=== PATIENT | male | born 1935 | race Caucasian/White ===

== ENCOUNTER → 2016-09-06 | Outpatient (CLI) | payer MEDICARE, BC ==
--- NOTE | 2016-09-06 14:18 | PN ---
DATE OF SERVICE: 09/06/2016 A 80-year-old gentleman who has been followed in the Sleep Center for treatment of obstructive sleep apnea-hypopnea syndrome. Patient continued to use his BiPAP equipment every night for the whole night without significant problems. Sleeps well with that. No snoring. [place] Sleepiness Scale is 2. I checked his BiPAP unit, pressure in the machine is 15/11 cm of water. Usage is 26 out of 30 nights for more than 4 hours. Leak is up to 34 L/min, which is acceptable. Apnea-hypopnea index reading for the last month is 5.9 for the last night is 2.6 which is acceptable. MEDICATIONS: Advair, Univasc, amlodipine, simvastatin, gabapentin, omeprazole. During physical exam, patient in no distress. BP 152/71, HR 74, RR 16, height 5 foot 8. Weight 278. BMI 42.2. Neck 17-1/4 inches in circumference. Temp is 98.0. Oxygen saturation at room air 95%. Low position of soft palate. ABDOMEN: Obese. EXTREMITIES: 1+ ankle edema. IMPRESSION: 1. Obstructive sleep apnea-hypopnea syndrome on control with BiPAP at the pressure 15/11 cm of water. 2. Obesity. Patient lost 9 pounds since the previous visit. 3. Hypertension. 4. History of asthma. 5. Hyperlipidemia. 6. Acid reflux. 7. Status post left knee replacement. PLAN: 1. Continue treatment with BiPAP every night for the whole night. 2. Losing weight. 3. Sleep hygiene with regular time in bed for at least 8 hours. 4. No driving if feeling any sleepiness. 5. Prescription for all necessary BiPAP supplies. Thank you very much for allowing me to participate in the management of your patient. Sincerely, Greg Quick MD, PhD, FAASM. Diplomat of [employer], Sleep Medicine Board by [employer] Sulfuric Acid Plant Operator of [facility] [place]
== END | disposition home or self-care (01) ==
LOC: SLEEP 11:41
PROVIDERS: ATTEND Internal Medicine
DX: G47.33 Obstructive sleep apnea (adult) (pediatric) (principal); E66.9 Obesity, unspecified; I10 Essential (primary) hypertension; J45.909 Unspecified asthma, uncomplicated; E78.5 Hyperlipidemia, unspecified; K21.9 Gastro-esophageal reflux disease without esophagitis; Z68.41 Body mass index [BMI] 40.0-44.9, adult; Z96.652 Presence of left artificial knee joint; Z79.899 Other long term (current) drug therapy

== ENCOUNTER → 2017-08-29 | Outpatient (CLI) | payer MEDICARE, BC ==
--- NOTE | 2017-08-29 12:03 | PN ---
PROGRESS NOTE DATE OF SERVICE: 08/29/2017. DATE OF SERVICE: An 81-year-old gentleman has been followed in Sleep Center for treatment of obstructive sleep apnea-hypopnea syndrome. The patient continued to use his BiPAP equipment every night without any significant problems related to mask, tube, filters. He is using nasal pillow mask. [place] Sleepiness Scale today is 4. I checked his BiPAP unit, the BiPAP pressure is 15/11 cm of water, humidity at level of 4. Usage is 100% of the time, more than 4 hours. Average usage 9.1 hours. Leak is 19 L/minute which is acceptable. Apnea-hypopnea index for the last month is only 2.0, which is perfect. MEDICATIONS: Advair, Univasc, amlodipine, simvastatin, gabapentin, omeprazole. PHYSICAL EXAMINATION: GENERAL: A pleasant patient without any distress. VITAL SIGNS: BP 159/75, HR 75, RR 18, height 5 feet 8 inches, weight 294.2, BMI 44.7, temperature 97.2, oxygen saturation room air 96%. HEENT: Oropharynx low position of soft palate. PERRLA, EOMI, evaluation of oropharynx showed tongue protrudes midline. Neck Supple, no JVD. Thyroid is not palpable. LUNGS: Clear to percussion and to auscultation. Good air exchange. No wheezing or rhonchi. HEART: S1, S2 regular. No murmurs, gallops, or rubs. ABDOMEN: Obese, soft and nontender. Bowel sounds are present. No organomegaly appreciated. EXTREMITIES: 1+ ankle edema. No clubbing or cyanosis. HAND INSPECTOR: Awake, alert, and oriented X3. Cranial nerves 2 to 7 intact. There is no fasciculation or atrophy. noted. No focal deficits observed. IMPRESSION: 1. Obstructive sleep apnea-hypopnea syndrome. The patient demonstrated 100% compliance with treatment, benefitting from treatment, respirations normal on BiPAP. 2. Obesity. The patient increased his weight by 16 pounds since previous visit. 3. Hypertension. 4. History of asthma. 5. Acid reflux. 6. Hyperlipidemia. 7. Status post left knee replacement. PLAN: 1. Patient will continue to use BiPAP equipment every night for the whole night with the same regimen. 2. Prescription for all necessary supplies including nasal pillow mask, tube, filters. 3. Losing weight. 4. Sleep hygiene with regular time in bed for at least 7.5 hours. 5. No driving if feeling sleepiness. 6. Followup visit in 1 year or earlier if patient has any problems. Thank you very much for allowing me to participate in the care of your patient. JONAS / COLETTEN: [id number] /
== END | disposition home or self-care (01) ==
LOC: SLEEP 11:05
PROVIDERS: ATTEND Internal Medicine
DX: G47.33 Obstructive sleep apnea (adult) (pediatric) (principal); E66.9 Obesity, unspecified; I10 Essential (primary) hypertension; K21.9 Gastro-esophageal reflux disease without esophagitis; E78.5 Hyperlipidemia, unspecified; Z96.651 Presence of right artificial knee joint; Z87.09 Personal history of other diseases of the respiratory system; Z99.89 Dependence on other enabling machines and devices

== ENCOUNTER → 2018-09-04 | Outpatient (CLI) | payer MEDICARE, BC ==
--- NOTE | 2018-09-04 11:57 | SFUN ---
SLEEP CENTER FOLLOW UP NOTE DATE OF SERVICE: 09/04/2018 This is an 82-year-old gentleman who has been followed in the sleep center for treatment of obstructive sleep apnea-hypopnea syndrome. Patient continued to use his BiPAP equipment every night for the whole night, sometimes possibly opens his mouth during the sleep according to his . [place] Sleepiness Scale today is 0. Sometimes patient feels sleepiness during the day. I checked his BiPAP unit. Usage is 100% of the time more than 4 hours. Average usage is 9.8 hours per night. Pressure is 15 or 11 cm of water. Leak is 29 L/minute for the last month average. Apnea-hypopnea index only 4.2, which is absolutely normal range. MEDICATIONS: Advair, Univasc, amlodipine, simvastatin, gabapentin, omeprazole. PHYSICAL EXAMINATION: During physical exam, patient in no distress. VITAL SIGNS: BP 170/84, HR 72, RR 19, height 5 feet 8 inches, weight 295 pounds which is about the same as last year when it was 294, body mass index 44.7, temperature 97.8, oxygen saturation at room air 97%. HEENT: PERRLA, EOMI. Oropharynx extremely low position of soft palate, Mallampati 4. NECK: Supple, no JVD. Thyroid is not palpable. LUNGS: Clear to percussion and to auscultation. Good air exchange. No wheezing or rhonchi. HEART: S1, S2 regular. No murmurs, gallops, or rubs. ABDOMEN: Obese. EXTREMITIES: 1+ bilateral ankle edema. CRIME SCENE ANALYST: Awake, alert, and oriented X3. Cranial nerves 2 to 7 intact. There is no fasciculation or atrophy. noted. No focal deficits observed. IMPRESSION: 1. Obstructive sleep apnea-hypopnea syndrome. The patient demonstrated 100% compliance with treatment benefitting from treatment normal respiration by the reading from the machine. 2. High leak possibly related to opening mouth. 3. Obesity. 4. Hypertension. 5. History of asthma. 6. Acid reflux. 7. Hyperlipidemia. 8. Status post left knee replacement. PLAN: 1. Patient will continue to use BiPAP equipment every night for the whole night. 2. Prescription for all necessary BiPAP supplies including mask, tube, filters. 3. Prescription for chin strap to prevent opening mouth. 4. Losing weight. 5. Sleep hygiene with regular time in bed for at least 8 hours. 6. No driving if feeling any sleepiness. Thank you very much for allowing me to participate in management of your patient. Sincerely, Greg Quick MD, PhD, FAASM Diplomat of [employer] Clerk Carrier of [facility] [place] MMODL / TRINA: [id number] /
== END ==
LOC: SLEEP 10:57
PROVIDERS: ATTEND Internal Medicine
DX: G47.33 Obstructive sleep apnea (adult) (pediatric) (principal); E66.9 Obesity, unspecified; I10 Essential (primary) hypertension; K21.9 Gastro-esophageal reflux disease without esophagitis; E78.5 Hyperlipidemia, unspecified; Z96.652 Presence of left artificial knee joint; Z87.09 Personal history of other diseases of the respiratory system; Z99.89 Dependence on other enabling machines and devices; Z79.899 Other long term (current) drug therapy

== ENCOUNTER → 2020-01-28 | Outpatient (CLI) | payer MEDICARE, BC ==
--- NOTE | 2020-01-29 02:13 | SFUN ---
SLEEP CENTER FOLLOW UP NOTE DATE OF SERVICE: 01/28/2020 An 84-year-old gentleman who has been followed in sleep center for treatment of obstructive sleep apnea-hypopnea syndrome. The patient is successfully continuing to use his BiPAP equipment and does not have any complaints. According to his , everything is okay except at the beginning when he started to use machine pressure is high. I checked his BiPAP unit. Level of the pressure of 15/11. Usage 23 out of 30 nights for more than 4 hours. Average usage is 6.9 hours per night. Leak is 36 L/minute. Apnea- hypopnea index 11.5 with central apnea-hypopnea index 7.1. [place] Sleepiness Scale is 9. MEDICATIONS: Univasc, amlodipine, simvastatin, gabapentin. PHYSICAL EXAMINATION: GENERAL: Patient in no distress. VITAL SIGNS: BP 170/81, HR 78, RR 16, height 5 feet 8 inches, weight 256, body mass index 38.9, temperature 98.6, oxygen saturation at room air 96%. HEENT: PERRLA, EOMI. Oropharynx extremely low position of soft palate. Mallampati 4. NECK: Supple, no JVD. Thyroid is not palpable. LUNGS: Clear to percussion and to auscultation. Good air exchange. No wheezing or rhonchi. HEART: S1, S2 regular. No murmurs, gallops, or rubs. ABDOMEN: Obese. EXTREMITIES: 1+ ankle edema. RAMP BOSS: Awake, alert, and oriented X3. Cranial nerves 2 to 7 intact. There is no fasciculation or atrophy. noted. No focal deficits observed. IMPRESSION: 1. Obstructive sleep apnea-hypopnea syndrome. Patient demonstrated great compliance with treatment, benefitting from treatment. 2. Reading from BiPAP unit showed increasing apnea-hypopnea index, mostly related to central apneas, possibly pressure in BiPAP unit slightly high for the patient because he lost around 40 pounds since previous visit. 3. High leak possibly opening mouth. 4. Obesity. 5. Hypertension. 6. History of asthma. 7. Acid reflux. 8. Hyperlipidemia. 9. Status post left knee replacement. PLAN: 1. I slightly decreased pressure in BiPAP unit down to 13/9 cm of water. 2. Patient will continue to use PAP equipment every night for the whole night. 3. Sleep hygiene with regular time in bed for at least 7-1/2 to 8 hours. 4. Precautions related to driving. No driving if feeling sleepiness. 5. I will maintain all necessary prescription for PAP supplies including mask, tube, filters. 6. Watching and losing weight. 7. No driving if feeling sleepiness. 8. Follow-up visit in 6 months or earlier if patient has any problems. Thank you very much for allowing me to participate in management of your patient. Sincerely, Greg Quick MD, PhD, FAASM Diplomat of [employer] Geographic Information Systems Analyst of [facility] [place] MMODL / IJN: [id number] /
== END | disposition home or self-care (01) ==

== ENCOUNTER → 2020-06-17 | Outpatient (CLI) | payer MEDICARE, BC ==
--- NOTE | 2020-06-17 15:24 | CT ---
EXAMINATION TYPE: CT brain wo con DATE OF EXAM: 06/17/2020 HISTORY: Weakness and confusion CT DLP: 1209.4 mGycm. Automated Exposure Control for Dose Reduction was Utilized. TECHNIQUE: CT scan of the head is performed without contrast. COMPARISON: MRI brain January 16, 2011. FINDINGS: There is no acute intracranial hemorrhage or midline shift identified. There is diffuse v entricular and sulcal prominence consistent with diffuse age-related cerebral atrophy greatest over t he bilateral frontal and temporal lobes. There is low-attenuation in the periventricular white matte r consistent with chronic small vessel ischemic change. The globes are intact and the visualized sin uses are clear. IMPRESSION: No acute intracranial hemorrhage or midline shift. There is moderate diffuse cerebral a trophy and mild to moderate chronic small vessel ischemic change with interval progression from 2011 MRI noted.
== END | disposition home or self-care (01) ==
LOC: RADCTMAIN 12:15
PROVIDERS: ATTEND Internal Medicine
DX: G31.9 Degenerative disease of nervous system, unspecified (principal); I67.82 Cerebral ischemia; F03.90 Unspecified dementia, unspecified severity, without behavioral disturbance, psychotic disturbance, mood disturbance, and anxiety
CPT/HCPCS: 70450

== ENCOUNTER → 2020-08-18 | Outpatient (CLI) | payer MEDICARE, BC ==
--- NOTE | 2020-08-18 12:20 | SFUN ---
SLEEP CENTER FOLLOW UP NOTE DATE OF SERVICE: 08/18/2020 This 84-year-old gentleman had been followed in Sleep Center for treatment of obstructive sleep apnea-hypopnea syndrome. The patient continued to use his BiPAP equipment but may forgot to use it some nights. Patient has dementia. His helping him. [place] Sleepiness Scale today is zero. I checked his BiPAP unit. Pressure is 13/9 cm of water. Usage is 24 out of 30 nights. Average usage 4.5 hours per night. Leak is 29 L/minute. Apnea-hypopnea index 7.7, which includes central index 1.7. During the previous visit, apnea-hypopnea index was 11.5 and after I adjusted the pressure down to avoid central apneas, this actually improved. MEDICATIONS: Donepezil 5 mg once a day, simvastatin 20 mg once a day, amlodipine 10 mg once a day, lisinopril 20 mg once a day, B12 at 1000 mcg every other day and melatonin at bedtime. PHYSICAL EXAMINATION: GENERAL: Patient in no distress. VITAL SIGNS: BP 134/70, HR 65, RR 18, height 5 feet 9 inches, weight 247.8, temperature 98.2, oxygen saturation at room air 97%. HEENT: PERRLA, EOMI, evaluation of oropharynx extremely low position of soft palate. Mallampati 4. NECK: Supple, no JVD. Thyroid is not palpable. LUNGS: Clear to percussion and to auscultation. Good air exchange. No wheezing or rhonchi. HEART: S1, S2 regular. No murmurs, gallops, or rubs. ABDOMEN: Soft and nontender. Bowel sounds are present. No organomegaly appreciated. EXTREMITIES: No clubbing or cyanosis. UNIFORM ATTENDANT: Awake, alert, and oriented X3. Cranial nerves 2 to 7 intact. There is no fasciculation or atrophy. noted. No focal deficits observed. IMPRESSION: 1. Obstructive and central sleep apnea-hypopnea syndrome, mostly on control with BiPAP. The patient benefitting from treatment, apnea-hypopnea index reduced during this visit comparing with the previous visit. 2. Hypertension. 3. Dementia. 4. History of asthma. 5. Obesity. 6. Acid reflux. 7. Hyperlipidemia. 8. Status post left knee replacement. PLAN: 1. Patient will continue to use PAP equipment every night for the whole night. 2. Sleep hygiene with regular time in bed for at least 7-1/2 to 8 hours. 3. Precautions related to driving. No driving if feeling sleepiness. 4. I will maintain all necessary prescription for PAP supplies including mask, tube, filters. 5. Watching weight. 6. No driving if feeling sleepiness. 7. Follow-up visit in 6 months or earlier if patient has any problems. Thank you very much for allowing me to participate in management of your patient. Sincerely, Greg Quick MD, PhD, FAASM Diplomat of [employer] Vessel Captain of [facility] [place] MMODL / IJN: [id number] /
== END | disposition home or self-care (01) ==
LOC: SLEEP 09:49
PROVIDERS: ATTEND Internal Medicine
DX: G47.33 Obstructive sleep apnea (adult) (pediatric) (principal); I10 Essential (primary) hypertension; F03.90 Unspecified dementia, unspecified severity, without behavioral disturbance, psychotic disturbance, mood disturbance, and anxiety; E66.9 Obesity, unspecified; K21.9 Gastro-esophageal reflux disease without esophagitis; E78.5 Hyperlipidemia, unspecified; Z99.89 Dependence on other enabling machines and devices; Z79.899 Other long term (current) drug therapy; Z96.652 Presence of left artificial knee joint; Z87.09 Personal history of other diseases of the respiratory system

== ENCOUNTER → 2020-10-13 | Outpatient (CLI) | payer MEDICARE, BC | END | disposition home or self-care (01) | LOC: LABWHC1 15:39 | PROVIDERS: ATTEND Internal Medicine | DX: Z20.822 Contact with and (suspected) exposure to COVID-19 (principal) | CPT/HCPCS: U0003; C9803; U0005 ==

== ENCOUNTER → 2020-10-17 | Outpatient (CLI) | payer MEDICARE, BC ==
--- NOTE | 2020-10-17 15:28 | XR ---
EXAMINATION TYPE: XR chest 2V DATE OF EXAM: 10/17/2020 COMPARISON: None HISTORY: 84-year-old male R05, cough TECHNIQUE: Frontal and lateral views FINDINGS: Heart upper limits of normal in size. Tortuous/ectatic thoracic aorta. Patchy atelectasis or early in filtrate at the left base. No pleural effusion. IMPRESSION: Some mild patchy left basilar atelectasis versus early infiltrate.
== END | disposition home or self-care (01) ==
LOC: RADXRMAIN 14:26
PROVIDERS: ATTEND Internal Medicine
DX: R05 Cough (principal)
CPT/HCPCS: 71046

== ENCOUNTER 2020-11-11 14:13 | Inpatient (IN) | payer MEDICARE, BC ==
[2020-11-11 15:09] LABS: Albumin 3.5 g/dL (3.5-5.0); Magnesium 2.4 mg/dL (1.6-2.3); Potassium 3.9 mmol/L (3.5-5.1); Total Bilirubin 0.9 mg/dL (0.2-1.3)
[2020-11-11 15:19] LABS: Partial Thromboplastin Time 21.9 sec (22.0-30.0); Prothrombin Time 10.8 sec (9.0-12.0)
[2020-11-11 15:23] LABS: Anisocytosis Slight; Basophils # (A) 0.2 k/uL (0-0.2); Basophils % (A) 1 %; Eosinophils % (A) 0 %; HCT 50.2 % (39.0-53.0); HGB 16.2 gm/dL (13.0-17.5); Lymphocytes # (A) 1.2 k/uL (1.0-4.8); Lymphocytes % (A) 8 %; MCH 26.1 pg (25.0-35.0); MCHC 32.3 g/dL (31.0-37.0); MCV 80.8 fL (80.0-100.0); Mean Platelet Volume 8.3; Microcytosis Slight; Monocytes # (A) 1.3 k/uL (0-1.0); Monocytes % (A) 10 %; Neutrophils # (A) 11.1 k/uL (1.3-7.7); Neutrophils % (A) 79 %; Platelet Count 349 k/uL (150-450); RBC 6.22 m/uL (4.30-5.90); RDW 16.9 % (11.5-15.5)
[2020-11-11 15:26] LABS: D-Dimer 1.44 mg/L FEU (<0.60)
--- NOTE | 2020-11-11 15:32 | ED ---
General Adult HPI - General Chief complaint: Shortness of Breath Stated complaint: SOB Time Seen by Provider: 11/11/20 14:25 Source: EMS Mode of arrival: EMS Limitations: altered mental status - History of Present Illness Initial comments: Dictation was produced using [employer] dictation software. please excuse any grammatical, word or spelling errors. This patient was cared for during a federal and state declared state of emergency secondary to Covid 19 Chief Complaint: 84-year-old male brought in from any [facility] the [address] History of Present Illness: Patient is an 84-year-old male presents to the emergency department from any [facility]. Patient has history of dementia and is at baseline alert and oriented 1. Patient was recently hospitalized for COVID-19 pneumonia and respiratory failure. He was recently discharged. He was at the rehab admitted [facility] for Covid rehab. He was coming along fine when today he was noted to be hypoxic. EMS was called patient brought to the emergency department. He is placed on noninvasive ventilation. Unable to obtain sedated to baseline mental status PHYSICAL EXAM: General Impression: Alert and oriented x1/4, BiPAP in place HEENT: Normocephalic atraumatic, extra-ocular movements intact, pupils equal and reactive to light bilaterally, mucous membranes moist. Cardiovascular: Heart regular rate and rhythm Chest: no retractions, no tachypnea Abdomen: abdomen soft, non-tender, non-distended, no organomegaly Musculoskeletal: Pulses present and equal in all extremities, no peripheral edema Motor: no focal deficits noted Neurological: no focal motor or sensory deficits noted Skin: Intact with no visualized rashes ED course: 84-year-old male brought to the emergency Department for hypoxia. He was recently hospitalized for respiratory failure secondary to COVID-19. Vital signs upon arrival shows a 87% on CPAP, rest of vital signs within acceptable limits. Patient change to bilevel positive airway pressure. Saturations improved to 100. Laboratory evaluation obtained. Leukocytosis 14.0. Coag panel is unremarkable. D-dimer is elevated 1.44. Arterial blood gas shows pH of 7.5 with pO2 128 and FiO2 of 100. Metabolic panel is within acceptable limits. Lactic acidosis 2.5. Troponin is within usual limits. No evidence for heart failure. Coronal virus test is positive. Chest x-ray shows diffuse bilateral infiltrates. CT angios the chest was obtained due to elevated d-dimer shows no PE but redemonstrates extensive posterior infiltrates consistent with pneumonia. This was unclear patient's symptoms are from Covid versus bacterial pneumonia. Patient will be treated with antibiotics. Patient be admitted. He is satting well on BiPAP. Case discussed with department was went except patient's care per pulmonology be consulted. EKG interpretation: Ventricular rate 100, sinus rhythm, CT interval 162, QRS 80, QTc 464. No CT prolongation, no QTC prolongation, no ST or T-wave changes noted. No old EKG for comparison Overall, this EKG is unremarkable - Related Data Home Medications Medication Instructions Recorded Confirmed Acetaminophen [Tylenol Arthritis] 650 mg PO Q6H PRN 11/11/20 11/11/20 Albuterol Sulfate [Ventolin HFA] 2 puff INHALATION QID@07,,,11/11/20 11/11/20 Ascorbic Acid [Vitamin C] 1,000 mg PO DAILY@69911/11/20 11/11/20 Donepezil HCl [Aricept] 10 mg PO DAILY@69911/11/20 11/11/20 Enoxaparin [Lovenox] 40 mg SQ DAILY@0500 11/11/20 11/11/20 Health-Shake 1 can PO TID@0700,1300,1900 11/11/20 11/11/20 Ipratropium-Albuterol Nebulize 3 ml INHALATION RT-Q6H PRN 11/11/20 11/11/20 [Duoneb 0.5 mg-3 mg/3 ml Soln] Lansoprazole [Prevacid] 15 mg PO DAILY 11/11/20 11/11/20 Melatonin 3 mg PO HS 11/11/20 11/11/20 Metoclopramide [Reglan] 5 mg PO TID@0700,1300,1900 11/11/20 11/11/20 QUEtiapine FUMARATE [SEROquel] 12.5 mg PO HS@199911/11/20 11/11/20 Simvastatin [Zocor] 20 mg PO DAILY@69911/11/20 11/11/20 Zinc Sulfate [Orazinc] 220 mg PO DAILY@69911/11/20 11/11/20 amLODIPine [Norvasc] 10 mg PO DAILY@69911/11/2021 lisinopriL [Zestril] 20 mg PO DAILY 11/11/20 11/11/20 Allergies Allergy/AdvReac Type Severity Reaction Status Date / Time No Known Allergies Allergy Verified 11/11/20 15:29 Review of Systems ROS Statement: Those systems with pertinent positive or pertinent negative responses have been documented in the HPI. ROS Other: All systems not noted in ROS Statement are negative. Past Medical History Past Medical History: Dementia, Hyperlipidemia, Hypertension Additional Past Medical History / Comment(s): Covid positive, foot drop, History of Any Multi-Drug Resistant Organisms: None Reported Past Surgical History: Unable to Obtain Past Psychological History: Unable to Obtain Past Alcohol Use History: Unable to Obtain Past Drug Use History: Unable to Obtain General Exam Limitations: altered mental status Course Vital Signs 11/11/20 11/11/20 11/11/20 14:14 14:24 16:28 Temperature 98.4 F Pulse Rate 76 78 Respiratory 24 36 H Rate Blood Pressure 108/64 122/77 O2 Sat by Pulse 87 L 100 100 Oximetry Medical Decision Making - Lab Data Result diagrams: 11/11/20 14:28 11/11/20 14:55 Lab Results 11/11/20 11/11/20 11/11/20 Range/Units 14:28 14:28 14:28 WBC 14.0 H (3.8-10.6) k/uL RBC 6.22 H (4.30-5.90) m/uL Hgb 16.2 (13.0-17.5) gm/dL Hct 50.2 (39.0-53.0) % MCV 80.8 (80.0-100.0) fL MCH 26.1 (25.0-35.0) pg MCHC 32.3 (31.0-37.0) g/dL RDW 16.9 H (11.5-15.5) % Plt Count 349 (150-450) k/uL MPV 8.3 Neutrophils % 79 % Lymphocytes % 8 % Monocytes % 10 % Eosinophils % 0 % Basophils % 1 % Neutrophils # 11.1 H (1.3-7.7) k/uL Lymphocytes # 1.2 (1.0-4.8) k/uL Monocytes # 1.3 H (0-1.0) k/uL Eosinophils # 0.0 (0-0.7) k/uL Basophils # 0.2 (0-0.2) k/uL Anisocytosis Slight Microcytosis Slight PT (9.0-12.0) sec INR (<1.2) APTT (22.0-30.0) sec D-Dimer (<0.60) mg/L FEU Sample Site ABG pH (7.35-7.45) ABG pCO2 (35-45) mmHg ABG pO2 (83-108) mmHg ABG HCO3 (21-25) mmol/L ABG Total CO2 (19-24) mmol/L ABG O2 Saturation (94-97) % ABG Base Excess mmol/L Benito Test FiO2 % Sodium (137-145) mmol/L Potassium (3.5-5.1) mmol/L Chloride (98-107) mmol/L Carbon Dioxide (22-30) mmol/L Anion Gap mmol/L BUN (9-20) mg/dL Creatinine (0.66-1.25) mg/dL Est GFR (CKD-EPI)AfAm (>60 ml/min/1.73 sqM) Est GFR (CKD-EPI)NonAf (>60 ml/min/1.73 sqM) Glucose (74-99) mg/dL Lactic Ac Sepsis Rflx Plasma Lactic Acid Kevin 2.5 H* (0.7-2.0) mmol/L Calcium (8.4-10.2) mg/dL Magnesium (1.6-2.3) mg/dL Total Bilirubin (0.2-1.3) mg/dL AST (17-59) U/L ALT (4-49) U/L Alkaline Phosphatase (38-126) U/L Troponin I (0.000-0.034) ng/mL NT-Pro-B Natriuret Pep pg/mL Total Protein (6.3-8.2) g/dL Albumin (3.5-5.0) g/dL Influenza Type A (PCR) Not Detected (Not Detectd) Influenza Type B (PCR) Not Detected (Not Detectd) RSV (PCR) Not Detected (Not Detectd) SARS-CoV-2 (PCR) Detected A (Not Detectd) 11/11/20 11/11/20 11/11/20 Range/Units 14:28 14:28 14:28 WBC (3.8-10.6) k/uL RBC (4.30-5.90) m/uL Hgb (13.0-17.5) gm/dL Hct (39.0-53.0) % MCV (80.0-100.0) fL MCH (25.0-35.0) pg MCHC (31.0-37.0) g/dL RDW (11.5-15.5) % Plt Count (150-450) k/uL MPV Neutrophils % % Lymphocytes % % Monocytes % % Eosinophils % % Basophils % % Neutrophils # (1.3-7.7) k/uL Lymphocytes # (1.0-4.8) k/uL Monocytes # (0-1.0) k/uL Eosinophils # (0-0.7) k/uL Basophils # (0-0.2) k/uL Anisocytosis Microcytosis PT 10.8 (9.0-12.0) sec INR 1.0 (<1.2) APTT 21.9 L (22.0-30.0) sec D-Dimer 1.44 H (<0.60) mg/L FEU Sample Site ABG pH (7.35-7.45) ABG pCO2 (35-45) mmHg ABG pO2 (83-108) mmHg ABG HCO3 (21-25) mmol/L ABG Total CO2 (19-24) mmol/L ABG O2 Saturation (94-97) % ABG Base Excess mmol/L Benito Test FiO2 % Sodium (137-145) mmol/L Potassium (3.5-5.1) mmol/L Chloride (98-107) mmol/L Carbon Dioxide (22-30) mmol/L Anion Gap mmol/L BUN (9-20) mg/dL Creatinine (0.66-1.25) mg/dL Est GFR (CKD-EPI)AfAm (>60 ml/min/1.73 sqM) Est GFR (CKD-EPI)NonAf (>60 ml/min/1.73 sqM) Glucose (74-99) mg/dL Lactic Ac Sepsis Rflx Plasma Lactic Acid Kevin (0.7-2.0) mmol/L Calcium (8.4-10.2) mg/dL Magnesium (1.6-2.3) mg/dL Total Bilirubin (0.2-1.3) mg/dL AST (17-59) U/L ALT (4-49) U/L Alkaline Phosphatase (38-126) U/L Troponin I 0.024 (0.000-0.034) ng/mL NT-Pro-B Natriuret Pep 212 pg/mL Total Protein (6.3-8.2) g/dL Albumin (3.5-5.0) g/dL Influenza Type A (PCR) (Not Detectd) Influenza Type B (PCR) (Not Detectd) RSV (PCR) (Not Detectd) SARS-CoV-2 (PCR) (Not Detectd) 11/11/20 11/11/20 11/11/20 Range/Units 14:55 15:09 16:32 WBC (3.8-10.6) k/uL RBC (4.30-5.90) m/uL Hgb (13.0-17.5) gm/dL Hct (39.0-53.0) % MCV (80.0-100.0) fL MCH (25.0-35.0) pg MCHC (31.0-37.0) g/dL RDW (11.5-15.5) % Plt Count (150-450) k/uL MPV Neutrophils % % Lymphocytes % % Monocytes % % Eosinophils % % Basophils % % Neutrophils # (1.3-7.7) k/uL Lymphocytes # (1.0-4.8) k/uL Monocytes # (0-1.0) k/uL Eosinophils # (0-0.7) k/uL Basophils # (0-0.2) k/uL Anisocytosis Microcytosis PT (9.0-12.0) sec INR (<1.2) APTT (22.0-30.0) sec D-Dimer (<0.60) mg/L FEU Sample Site R radial ABG pH 7.51 H (7.35-7.45) ABG pCO2 29 L (35-45) mmHg ABG pO2 128 H (83-108) mmHg ABG HCO3 23 (21-25) mmol/L ABG Total CO2 24 (19-24) mmol/L ABG O2 Saturation 98.3 H (94-97) % ABG Base Excess 0.1 mmol/L Benito Test Yes FiO2 100 % Sodium 140 (137-145) mmol/L Potassium 3.9 (3.5-5.1) mmol/L Chloride 104 (98-107) mmol/L Carbon Dioxide 25 (22-30) mmol/L Anion Gap 11 mmol/L BUN 28 H (9-20) mg/dL Creatinine 1.05 (0.66-1.25) mg/dL Est GFR (CKD-EPI)AfAm 76 (>60 ml/min/1.73 sqM) Est GFR (CKD-EPI)NonAf 66 (>60 ml/min/1.73 sqM) Glucose 126 H (74-99) mg/dL Lactic Ac Sepsis Rflx Y Plasma Lactic Acid Kevin (0.7-2.0) mmol/L Calcium 9.0 (8.4-10.2) mg/dL Magnesium 2.4 H (1.6-2.3) mg/dL Total Bilirubin 0.9 (0.2-1.3) mg/dL AST 33 (17-59) U/L ALT 23 (4-49) U/L Alkaline Phosphatase 106 (38-126) U/L Troponin I (0.000-0.034) ng/mL NT-Pro-B Natriuret Pep pg/mL Total Protein 7.0 (6.3-8.2) g/dL Albumin 3.5 (3.5-5.0) g/dL Influenza Type A (PCR) (Not Detectd) Influenza Type B (PCR) (Not Detectd) RSV (PCR) (Not Detectd) SARS-CoV-2 (PCR) (Not Detectd) Critical Care Time Critical Care Time: Yes Total Critical Care Time: 33 Disposition Clinical Impression: Pneumonia, Respiratory failure Disposition: ADMITTED IP TO THIS [facility] Condition: Critical Referrals: Alli Smith MD [Primary Care Provider] - 1-2 days Decision Time: 17:58
--- NOTE | 2020-11-11 15:56 | XR ---
EXAMINATION TYPE: XR chest 1V portable DATE OF EXAM: 11/11/2020 HISTORY: Shortness of breath. COMPARISON: 10/17/2020 TECHNIQUE: Single view of the chest is submitted. FINDINGS: Demonstrated are scattered senescent parenchymal change. Vague perihilar and lower lobe infiltrates. The heart is stable. Hilar and mediastinal structures are within normal limits. Degenerative changes are seen of the dorsal spine. IMPRESSION: 1. Vague perihilar and lower lobe infiltrates.
[2020-11-11 16:36] LABS: ABG Base Excess 0.1 mmol/L; ABG HCO3 23 mmol/L (21-25); ABG Oxygen Saturation 98.3 % (94-97); ABG PCO2 29 mmHg (35-45); ABG PH 7.51 (7.35-7.45); ABG PO2 128 mmHg (83-108); ABG TCO2 24 mmol/L (19-24); Allen Test Performed? Yes
--- NOTE | 2020-11-11 17:18 | CT ---
EXAMINATION TYPE: CT angio chest DATE OF EXAM: 11/11/2020 COMPARISON: None HISTORY: Shortness of breath. CT DLP: 793.9 mGycm Automated exposure control for dose reduction was used. CONTRAST: Performed with IV Contrast, patient injected with 100 mL of Isovue 370. Images obtained from the thoracic inlet to the diaphragm with IV contrast and 3-D post processing. There is patchy posterior pulmonary interstitial and airspace bilateral infiltrates. Thoracic aorta i s atheromatous. There are a few paratracheal lymph nodes up to 1 cm. There are is enlarged 2.5 cm lef t bronchial lymph nodes. There is no pericardial effusion. There is no pleural effusion. Upper abdominal soft tissues appear i ntact. I see no evidence of filling defect in the pulmonary arteries. 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 IMPRESSION: Bilateral pulmonary extensive posterior infiltrates consistent with pneumonia. No evidence of pulmona ry embolism. Enlarged left bronchial lymph node is likely inflammatory.
[2020-11-11] MEDS ORDERED: ONDANSETRON 4 MG/2 ML VIAL IVP PRN (17:55)
[2020-11-11] MEDS ORDERED: ACETAMINOPHEN TAB 325 MG TAB PO PRN (17:55)
[2020-11-11] MEDS ORDERED: NALOXONE 0.4 MG/ML 1 ML VIAL IV PRN (17:55)
[2020-11-11] MEDS ORDERED: AZITHROMYCIN 500 MG in SODIUM CHLORIDE 0.9% 250 ML IVPB STA (17:57)
[2020-11-11] MEDS ORDERED: cefTRIAXone IN SWFI 1,000 MG/10 ML SYRINGE IVP STA (17:57)
[2020-11-11] MEDS ORDERED: DEXAMETHASONE SOD PHOSPHATE 10 MG/ML 1 ML VIAL IV STA (17:58)
[2020-11-11] MEDS: SODIUM CHLORIDE 0.9% 1,000 ML IV SCH (18:49)
[2020-11-11] MEDS ORDERED: LORazepam 2 MG/ML INJ IV PRN (21:03)
[2020-11-11] MEDS: QUEtiapine 25 MG TAB PO SCH (21:24)
[2020-11-12] MEDS: ENOXAPARIN 40 MG/0.4 ML SYRINGE SQ SCH (05:57)
[2020-11-12] MEDS: SODIUM CHLORIDE 0.9% 1,000 ML IV SCH ×2 (05:57→20:24)
[2020-11-12] MEDS: ASCORBIC ACID 500 MG TAB PO SCH (05:57)
[2020-11-12] MEDS: ATORVASTATIN 10 MG TAB PO SCH (05:57)
[2020-11-12] MEDS: DONEPEZIL 10 MG TAB PO SCH (05:58)
[2020-11-12] MEDS: ZINC SULFATE 220 MG CAP PO SCH (05:58)
[2020-11-12] MEDS: PANTOPRAZOLE 40 MG TABLET PO SCH (05:58)
[2020-11-12] MEDS: ALBUTEROL HFA INHALER INHALATION PRN ×3 (12:27→20:34)
[2020-11-12 12:33] LABS: African American GFR (CKD) >90 (>60 ml/min/1.73 sqM); Anion Gap 8 mmol/L; Blood Urea Nitrogen 27 mg/dL (9-20); C Reactive Protein 3.8 mg/dL (<1.0); Calcium 8.8 mg/dL (8.4-10.2); Carbon Dioxide 23 mmol/L (22-30); Chloride 110 mmol/L (98-107); Glucose 128 mg/dL (74-99); LDH 1075 U/L (313-618); Non-African American GFR(CKD) 81 (>60 ml/min/1.73 sqM); Potassium 4.6 mmol/L (3.5-5.1); Sodium 141 mmol/L (137-145)
[2020-11-12 12:37] LABS: Anisocytosis Slight; Basophils # (A) 0.2 k/uL (0-0.2); Basophils % (A) 2 %; Eosinophils % (A) 0 %; HCT 48.2 % (39.0-53.0); HGB 16.1 gm/dL (13.0-17.5); Lymphocytes # (A) 0.5 k/uL (1.0-4.8); Lymphocytes % (A) 5 %; MCH 27.5 pg (25.0-35.0); MCHC 33.4 g/dL (31.0-37.0); MCV 82.3 fL (80.0-100.0); Mean Platelet Volume 8.9; Monocytes # (A) 0.6 k/uL (0-1.0); Monocytes % (A) 7 %; Neutrophils # (A) 7.5 k/uL (1.3-7.7); Neutrophils % (A) 84 %; Platelet Count 239 k/uL (150-450); RBC 5.85 m/uL (4.30-5.90); RDW 16.8 % (11.5-15.5); WBC 8.9 k/uL (3.8-10.6)
--- NOTE | 2020-11-12 14:03 | P.CNPUL ---
History of Present Illness Consult date: 11/12/20 Requesting physician: Annie Lizarraga Reason for consult: dyspnea, hypoxemia, pneumonia, abnormal CXR/CT Chief complaint: Shortness of breath. History of present illness: Pulmonary consult dated 11/12/2020. This is an 84-year-old male, brought into the emergency room, on November 11, with complaints of shortness of breath. He was brought in by EMS. The patient apparently was at the [facility] and was then transferred to the some other facility in [place], because they have a COVID unit. Apparently, because his shortness of breath was getting worse, the patient was transferred to the emergency room to be evaluated. The patient is a very poor historian. He apparently has severe dementia. He is not really able to tell me why he is in the hospital. He is very confused about where he was prior to this hospital. Currently, the patient is on 4 L nasal cannula. He is getting saline at 80 mL an hour. He had a CT angiogram which was negative for pulmonary embolism but did show diffuse bilateral infiltrates, consistent with coronavirus pneumonia. The patient apparently has a history of dementia, hyperlipidemia, hypertension, and foot drop. White count 8.9, hemoglobin 16.1, hematocrit 48.2, platelet count 239,000. Blood gases show pO2 128, pCO2 of 29, pH is 7.51. Sodium 141, potassium 4.6, chlorides 110, CO2 23, anion gap 8, BUN 27, and creatinine 0.84. His LDH is 1075 and a C-reactive protein is 3.8. His d-dimer is only 1.44. Chest x-ray and CAT scan are reviewed, and are consistent with the diagnosis. Review of Systems REVIEW OF SYSTEMS: CONSTITUTIONAL: [Negative.] NEUROLOGIC: [ Negative.] HEENT: [ Negative.] CARDIAC: [Negative.] PULMONARY: Shortness of breath and low saturations. GI: [Negative.] : [Negative.] RHEUMATOLOGIC: [ Negative.] IMMUNOLOGIC: [ Negative.] ENDOCRINE: [Negative. ] DERMATOLOGIC: [Negative.] Past Medical History Past Medical History: Dementia, Hyperlipidemia, Hypertension, Sleep Apnea/CPAP/BIPAP Additional Past Medical History / Comment(s): Covid positive, foot drop, HAD COVID VACCINE History of Any Multi-Drug Resistant Organisms: None Reported Past Surgical History: Unable to Obtain Past Psychological History: Unable to Obtain Smoking Status: Former smoker Past Alcohol Use History: Unable to Obtain Past Drug Use History: Unable to Obtain Medications and Allergies Home Medications Medication Instructions Recorded Confirmed Type Acetaminophen [Tylenol Arthritis] 650 mg PO Q6H PRN 11/11/20 11/11/20 History Albuterol Sulfate [Ventolin HFA] 2 puff INHALATION QID@07,13,19,23 11/11/20 11/11/20 History Ascorbic Acid [Vitamin C] 1,000 mg PO DAILY@0700 11/11/20 11/11/20 History Donepezil HCl [Aricept] 10 mg PO DAILY@0700 11/11/20 11/11/20 History Enoxaparin [Lovenox] 40 mg SQ DAILY@0500 11/11/20 11/11/20 History Health-Shake 1 can PO TID@0700,1300,1900 11/11/20 11/11/20 History Ipratropium-Albuterol Nebulize 3 ml INHALATION RT-Q6H PRN 11/11/20 11/11/20 History [Duoneb 0.5 mg-3 mg/3 ml Soln] Lansoprazole [Prevacid] 15 mg PO DAILY 11/11/20 11/11/20 History Melatonin 3 mg PO HS 11/11/20 11/11/20 History Metoclopramide [Reglan] 5 mg PO TID@0700,1300,1900 11/11/20 11/11/20 History QUEtiapine FUMARATE [SEROquel] 12.5 mg PO HS@199911/11/20 11/11/20 History Simvastatin [Zocor] 20 mg PO DAILY@0711/11/20 11/11/20 History Zinc Sulfate [Orazinc] 220 mg PO DAILY@0700 11/11/20 11/11/20 History amLODIPine [Norvasc] 10 mg PO DAILY@0711/11/20 11/11/20 History lisinopriL [Zestril] 20 mg PO DAILY 11/11/20 11/11/20 History Allergies Allergy/AdvReac Type Severity Reaction Status Date / Time No Known Allergies Allergy Verified 11/11/20 15:29 Physical Exam Osteopathic Statement: *. No significant issues noted on an osteopathic structural exam other than those noted in the History and Physical/Consult. Vitals: Vital Signs Temp Pulse Pulse Resp BP BP Pulse Ox 11/12/20 12:05 97.1 F L 62 20 129/74 91 L 11/12/20 08:40 93 L 11/12/20 08:30 96.7 F L 67 20 135/61 92 L 11/12/20 04:05 64 30 H 136/70 96 11/11/20 23:30 98.2 F 75 30 H 138/75 97 11/11/20 19:45 98.9 F 64 26 H 128/70 95 11/11/20 19:06 98.4 F 88 34 H 125/80 94 L 11/11/20 19:03 24 11/11/20 18:03 84 28 H 116/81 93 L 11/11/20 16:28 78 36 H 122/77 100 11/11/20 14:24 100 11/11/20 14:14 98.4 F 76 24 108/64 87 L Intake and Output 11/11/20 11/12/20 11/12/20 22:59 06:59 14:59 Intake Total 0 Balance 0 Intake: Oral 0 Other: Voiding Method Diaper Diaper # Voids 1 # Bowel Movements 1 Weight 104.326 kg 104 kg No acute distress, confused/demented, and a very poor historian. Currently on 4 L. Saturation 91%. HEENT examination is grossly unremarkable. Neck supple. Full range of motion. No adenopathy thyromegaly or neck vein distention. Cardiovascular examination reveals regular rhythm rate. S1-S2 normal. No S3 or S4. No discernible murmur noted. Heart sounds are distant. Heart rate 62 bpm. Lungs reveal coarse bilateral rhonchi. A few scattered crackles. No wheezes. Breath sounds equal bilaterally. Abdomen soft bowel sounds are heard. No masses or tenderness. Extremities are intact. No cyanosis clubbing or edema. Skin is without rash or lesion. Neurologic examination is brief but nonfocal. Results - Laboratory Findings CBC and BMP: 11/12/20 11:45 11/12/20 11:45 ABG ABG pH 7.51 (7.35-7.45) H 11/11/20 16:32 ABG pCO2 29 mmHg (35-45) L 11/11/20 16:32 ABG pO2 128 mmHg (83-108) H 11/11/20 16:32 ABG O2 Saturation 98.3 % (94-97) H 11/11/20 16:32 PT/INR, D-dimer PT 10.8 sec (9.0-12.0) 11/11/20 14:28 INR 1.0 (<1.2) 11/11/20 14:28 D-Dimer 1.44 mg/L FEU (<0.60) H 11/11/20 14:28 Abnormal lab findings: Abnormal Labs 11/11/20 11/11/20 11/11/20 14:28 14:28 14:28 WBC 14.0 H RBC 6.22 H RDW 16.9 H Neutrophils # 11.1 H Lymphocytes # Monocytes # 1.3 H APTT D-Dimer ABG pH ABG pCO2 ABG pO2 ABG O2 Saturation Chloride BUN Glucose Plasma Lactic Acid Kevin 2.5 H* Magnesium Lactate Dehydrogenase C-Reactive Protein SARS-CoV-2 (PCR) Detected A 11/11/20 11/11/20 11/11/20 14:28 14:55 16:32 WBC RBC RDW Neutrophils # Lymphocytes # Monocytes # APTT 21.9 L D-Dimer 1.44 H ABG pH 7.51 H ABG pCO2 29 L ABG pO2 128 H ABG O2 Saturation 98.3 H Chloride BUN 28 H Glucose 126 H Plasma Lactic Acid Kevin Magnesium 2.4 H Lactate Dehydrogenase C-Reactive Protein SARS-CoV-2 (PCR) 11/12/20 11/12/20 11:45 11:45 WBC RBC RDW 16.8 H Neutrophils # Lymphocytes # 0.5 L Monocytes # APTT D-Dimer ABG pH ABG pCO2 ABG pO2 ABG O2 Saturation Chloride 110 H BUN 27 H Glucose 128 H Plasma Lactic Acid Kevin Magnesium Lactate Dehydrogenase 1075 H C-Reactive Protein 3.8 H SARS-CoV-2 (PCR) - Diagnostic Findings Chest x-ray: image reviewed CT scan - chest: image reviewed Assessment and Plan Assessment: Acute hypoxemic respiratory failure, secondary to COVID 19 pneumonia. Elevated inflammatory markers secondary to coronavirus infection. No evidence of pulmonary embolism on CT angiogram. History of hyperlipidemia. History of hypertension. History of dementia. History of footdrop. Plan: Plan dated 11/12/2020. The patient is currently on vitamin C, and zinc. The patient should also receive vitamin D3. The patient's getting Lovenox 40 subcu daily. The patient should also get Decadron 6 mg a day. The patient is outside the window for REM. The patient is not a candidate for TOCI. We will continue to follow make r ecommendations were appropriate. Prognosis is guarded. Time with Patient: Greater than 30
[2020-11-12 17:52] LABS: Ferritin 260.8 ng/mL (22.0-322.0)
--- NOTE | 2020-11-12 18:28 | P.HPIM ---
History of Present Illness H&P Date: 11/12/20 Chief Complaint: hypoxemia 84-year-old male, brought into the emergency room, on November 11, with complaints of shortness of breath. He was brought in by EMS. The patient apparently was at the [facility] and was then transferred to the some other facility in [place], because they have a COVID unit. Apparently, because his shortness of breath was getting worse, the patient was transferred to the emergency room to be evaluated. The patient is a very poor historian. He apparently has severe dementia. He is not really able to tell me why he is in the hospital. He is very confused about where he was prior to this hospital. in the ED patienthad a CT angiogram which was negative for pulmonary embolism but did show diffuse bilateral infiltrates, consistent with coronavirus pneumonia. The patient apparently has a history of dementia, hyperlipidemia, hypertension, and foot drop. White count 8.9, hemoglobin 16.1, hematocrit 48.2, platelet count 239,000. Blood gases show pO2 128, pCO2 of 29, pH is 7.51. Sodium 141, potassium 4.6, chlorides 110, CO2 23, anion gap 8, BUN 27, and creatinine 0.84. His LDH is 1075 and a C-reactive protein is 3.8. His d-dimer is only 1.44. Chest x-ray and CAT scan are reviewed, and are consistent with the diagnosis. Review of Systems REVIEW OF SYSTEMS: CONSTITUTIONAL: No fever, no malaise, no fatigue. HEENT: No recent visual problems or hearing problems. Denied any sore throat. CARDIOVASCULAR: No chest pain, orthopnea, PND, no palpitations, no syncope. PULMONARY: No shortness of breath, no cough, no hemoptysis. GASTROINTESTINAL: No diarrhea, no nausea, no vomiting, no abdominal pain. NEUROLOGICAL: No headaches, no weakness, no numbness. HEMATOLOGICAL: Denies any bleeding or petechiae. GENITOURINARY: Denies any burning micturition, frequency, or urgency. MUSCULOSKELETAL/RHEUMATOLOGICAL: Denies any joint pain, swelling, or any muscle pain. ENDOCRINE: Denies any polyuria or polydipsia. The rest of the 14-point review of systems is negative. Past Medical History Past Medical History: Dementia, Hyperlipidemia, Hypertension, Sleep Apnea/CPAP/BIPAP Additional Past Medical History / Comment(s): Covid positive, foot drop, History of Any Multi-Drug Resistant Organisms: None Reported Past Surgical History: Unable to Obtain Past Psychological History: Unable to Obtain Smoking Status: Former smoker Past Alcohol Use History: Unable to Obtain Past Drug Use History: Unable to Obtain Medications and Allergies Home Medications Medication Instructions Recorded Confirmed Type Acetaminophen [Tylenol Arthritis] 650 mg PO Q6H PRN 11/11/20 11/11/20 History Albuterol Sulfate [Ventolin HFA] 2 puff INHALATION QID@07,13,,11/11/20 11/11/20 History Ascorbic Acid [Vitamin C] 1,000 mg PO DAILY@0700 11/11/20 11/11/20 History Donepezil HCl [Aricept] 10 mg PO DAILY@0711/11/20 11/11/20 History Enoxaparin [Lovenox] 40 mg SQ DAILY@0500 11/11/20 11/11/20 History Health-Shake 1 can PO TID@0700,1300,1900 11/11/20 11/11/20 History Ipratropium-Albuterol Nebulize 3 ml INHALATION RT-Q6H PRN 11/11/20 11/11/20 History [Duoneb 0.5 mg-3 mg/3 ml Soln] Lansoprazole [Prevacid] 15 mg PO DAILY 11/11/20 11/11/20 History Melatonin 3 mg PO HS 11/11/20 11/11/20 History Metoclopramide [Reglan] 5 mg PO TID@0700,1300,1900 11/11/20 11/11/20 History QUEtiapine FUMARATE [SEROquel] 12.5 mg PO HS@199911/11/20 11/11/20 History Simvastatin [Zocor] 20 mg PO DAILY@69911/11/20 11/11/20 History Zinc Sulfate [Orazinc] 220 mg PO DAILY@0711/11/20 11/11/20 History amLODIPine [Norvasc] 10 mg PO DAILY@0711/11/20 11/11/20 History lisinopriL [Zestril] 20 mg PO DAILY 11/11/20 11/11/20 History Allergies Allergy/AdvReac Type Severity Reaction Status Date / Time No Known Allergies Allergy Verified 11/11/20 15:29 Physical Exam Vitals: Vital Signs Temp Pulse Pulse Resp BP BP Pulse Ox 11/12/20 08:40 93 L 11/12/20 08:30 96.7 F L 67 20 135/61 92 L 11/12/20 04:05 64 30 H 136/70 96 11/11/20 23:30 98.2 F 75 30 H 138/75 97 11/11/20 19:45 98.9 F 64 26 H 128/70 95 11/11/20 19:06 98.4 F 88 34 H 125/80 94 L 11/11/20 19:03 24 11/11/20 18:03 84 28 H 116/81 93 L 11/11/20 16:28 78 36 H 122/77 100 11/11/20 14:24 100 11/11/20 14:14 98.4 F 76 24 108/64 87 L Intake and Output 11/11/20 11/12/20 11/12/20 22:59 06:59 14:59 Other: Voiding Method Diaper Diaper # Voids 1 # Bowel Movements 1 Weight 104.326 kg 104 kg PHYSICAL EXAMINATION: GENERAL: The patient is alert and oriented x3, not in any acute distress. Well developed, well nourished. HEENT: Pupils are round and equally reacting to light. EOMI. No scleral icterus. No conjunctival pallor. Normocephalic, atraumatic. No pharyngeal erythema. No thyromegaly. CARDIOVASCULAR: S1 and S2 present. No murmurs, rubs, or gallops. PULMONARY: Chest is clear to auscultation, no wheezing or crackles. ABDOMEN: Soft, nontender, nondistended, normoactive bowel sounds. No palpable organomegaly. MUSCULOSKELETAL: No joint swelling or deformity. EXTREMITIES: No cyanosis, clubbing, or pedal edema. NEUROLOGICAL: Gross neurological examination did not reveal any focal deficits. SKIN: No rashes. Results CBC & Chem 7: 11/12/20 11:45 11/12/20 11:45 Labs: Abnormal Lab Results - Last 24 Hours (Table) 11/11/20 11/11/20 11/11/20 Range/Units 14:28 14:28 14:28 WBC 14.0 H (3.8-10.6) k/uL RBC 6.22 H (4.30-5.90) m/uL RDW 16.9 H (11.5-15.5) % Neutrophils # 11.1 H (1.3-7.7) k/uL Monocytes # 1.3 H (0-1.0) k/uL APTT (22.0-30.0) sec D-Dimer (<0.60) mg/L FEU ABG pH (7.35-7.45) ABG pCO2 (35-45) mmHg ABG pO2 (83-108) mmHg ABG O2 Saturation (94-97) % BUN (9-20) mg/dL Glucose (74-99) mg/dL Plasma Lactic Acid Kevin 2.5 H* (0.7-2.0) mmol/L Magnesium (1.6-2.3) mg/dL SARS-CoV-2 (PCR) Detected A (Not Detectd) 11/11/20 11/11/20 11/11/20 Range/Units 14:28 14:55 16:32 WBC (3.8-10.6) k/uL RBC (4.30-5.90) m/uL RDW (11.5-15.5) % Neutrophils # (1.3-7.7) k/uL Monocytes # (0-1.0) k/uL APTT 21.9 L (22.0-30.0) sec D-Dimer 1.44 H (<0.60) mg/L FEU ABG pH 7.51 H (7.35-7.45) ABG pCO2 29 L (35-45) mmHg ABG pO2 128 H (83-108) mmHg ABG O2 Saturation 98.3 H (94-97) % BUN 28 H (9-20) mg/dL Glucose 126 H (74-99) mg/dL Plasma Lactic Acid Kevin (0.7-2.0) mmol/L Magnesium 2.4 H (1.6-2.3) mg/dL SARS-CoV-2 (PCR) (Not Detectd) Thrombosis Risk Factor Assmnt - Choose All That Apply Each Factor Represents 1 point: Oral contraceptives or hormone replacement therapy Thrombosis Risk Factor Assessment Total Risk Factor Score: 1 Thrombosis Risk Factor Assessment Level: Low Risk Assessment and Plan Assessment: 1. Acute hypoxemic respiratory failure, secondary to COVID 19 pneumonia. - The patient is currently on vitamin C, and zinc. The patient should also receive vitamin D3. The patient's getting Lovenox 40 subcu daily. The patient should also get Decadron 6 mg a day. The patient is outside the window for REM. The patient is not a candidate for TOCI. - patient is started on ceftriaxone and azithromycin; pulmonary service on board and recommending to discontinue antibiotics 2. Elevated inflammatory markers secondary to coronavirus infection. - no evidence of pulmonary embolism on CT angiogram. - Patient remains on subcu Lovenox at 40 mg subcu daily for DVT prophylaxis 3. Hyperlipidemia; Lipitor 10 mg daily. 4. Hypertension; takes amlodipine 10 mg daily and lisinopril 20 mg daily. 5. History of dementia; Aricept 10 mg by mouth daily. DVT prophylaxis; SCDs/subcu Lovenox CODE STATUS full code
[2020-11-12] MEDS ORDERED: QUEtiapine 25 MG TAB PO SCH (20:00)
[2020-11-12] MEDS: QUEtiapine 25 MG TAB PO SCH (20:24)
[2020-11-13] MEDS: ENOXAPARIN 40 MG/0.4 ML SYRINGE SQ SCH (06:21)
[2020-11-13] MEDS: ATORVASTATIN 10 MG TAB PO SCH (06:22)
[2020-11-13] MEDS: DONEPEZIL 10 MG TAB PO SCH (06:22)
[2020-11-13] MEDS: ASCORBIC ACID 500 MG TAB PO SCH (06:22)
[2020-11-13] MEDS: PANTOPRAZOLE 40 MG TABLET PO SCH (06:22)
[2020-11-13] MEDS: ZINC SULFATE 220 MG CAP PO SCH (06:22)
[2020-11-13 08:35] LABS: Anisocytosis Slight; HCT 49.3 % (39.0-53.0); HGB 16.5 gm/dL (13.0-17.5); MCH 27.2 pg (25.0-35.0); MCHC 33.4 g/dL (31.0-37.0); MCV 81.3 fL (80.0-100.0); Mean Platelet Volume 7.3; Platelet Count 360 k/uL (150-450); RBC 6.06 m/uL (4.30-5.90); RDW 16.6 % (11.5-15.5); WBC 14.2 k/uL (3.8-10.6)
[2020-11-13] MEDS: SODIUM CHLORIDE 0.9% 1,000 ML IV SCH ×2 (08:36→20:43)
[2020-11-13 08:46] LABS: African American GFR (CKD) >90 (>60 ml/min/1.73 sqM); Anion Gap 10 mmol/L; Blood Urea Nitrogen 18 mg/dL (9-20); C Reactive Protein 2.8 mg/dL (<1.0); Calcium 8.8 mg/dL (8.4-10.2); Carbon Dioxide 21 mmol/L (22-30); Chloride 108 mmol/L (98-107); Glucose 103 mg/dL (74-99); LDH 1473 U/L (313-618); Non-African American GFR(CKD) 85 (>60 ml/min/1.73 sqM); Sodium 139 mmol/L (137-145)
[2020-11-13 09:57] LABS: Band Neutrophils % 1 %; Eosinophils # (M) 0.14 k/uL (0-0.7); Lymphocytes # (M) 1.42 k/uL (1.0-4.8); Metamyelocytes # (M) 0.14 k/uL (0); Metamyelocytes % 1 %; Monocytes # (M) 0.99 k/uL (0-1.0); Myelocytes # (M) 0.14 k/uL (0); Myelocytes % 1 %; Neutrophils % (M) 81 %; Nucleated Red Blood Cells 0 /100 WBC (0-0); Total Cells Counted 200
[2020-11-13 12:17] LABS: Ferritin 259.7 ng/mL (22.0-322.0)
[2020-11-13] MEDS: ALBUTEROL HFA INHALER INHALATION PRN (15:47)
--- NOTE | 2020-11-13 16:37 | P.PN ---
Subjective Progress Note Date: 11/13/20 Principal diagnosis: COVID-19 pneumonia This is an 84-year-old male, brought into the emergency room, on November 11, with complaints of shortness of breath. He was brought in by EMS. The patient apparently was at the [facility] and was then transferred to the some other facility in [place], because they have a COVID unit. Apparently, because his shortness of breath was getting worse, the patient was transferred to the emergency room to be evaluated. The patient is a very poor historian. He apparently has severe dementia. He is not really able to tell me why he is in the hospital. He is very confused about where he was prior to this hospital. Currently, the patient is on 4 L nasal cannula. He is getting saline at 80 mL an hour. He had a CT angiogram which was negative for pulmonary embolism but did show diffuse bilateral infiltrates, consistent with coronavirus pneumonia. The patient apparently has a history of dementia, hyperlipidemia, hypertension, and foot drop. White count 8.9, hemoglobin 16.1, hematocrit 48.2, platelet count 239,000. Blood gases show pO2 128, pCO2 of 29, pH is 7.51. Sodium 141, potassium 4.6, chlorides 110, CO2 23, anion gap 8, BUN 27, and creatinine 0.84. His LDH is 1075 and a C-reactive protein is 3.8. His d-dimer is only 1.44. Chest x-ray and CAT scan are reviewed, and are consistent with the diagnosis. On 11/13/2020 patient seen in follow-up on selective care unit, he is currently on 4 L of oxygen with a pulse ox of 90%, he did wear BiPAP last night with pressures of 16/8 and FiO2 of 40%, he is breathing comfortably, currently sitting up in the chair, he is on point normal saline at a rate of 80 ML per hour. Vital signs have been stable, he has had no fever or chills. No new chest x-ray today, today's labs have been reviewed showing white blood cell count of 14.2, hemoglobin 16.5, sodium is 139, potassium is 4.0, chloride is 108, CO2 is 21, B1 is 18 and creatinine 0.76, pro calcitonin level was negative 2 and 0.07. Patient was outside the window for Remdesivir, he continues on conservative treatment with steroids, and prophylactic Lovenox. He is also receiving multivitamins. Objective - Vital Signs Vital signs: Vital Signs Temp 97.7 F 11/13/20 12:00 Pulse 74 11/13/20 12:00 Resp 20 11/13/20 12:00 BP 162/74 11/13/20 12:00 Pulse Ox 90 L 11/13/20 12:00 Intake & Output 11/12/20 11/13/20 11/13/20 18:59 06:59 18:59 Intake Total 118 640 Output Total 250 Balance 118 390 Weight 104.5 kg Intake: Intake, IV Titration 640 Amount Sodium Chloride 0.9% 1, 640 000 ml @ 80 mls/hr IV . [id number] [facility] Rx#:[id number] Oral 118 0 Output: Urine 250 Other: Voiding Method Diaper # Voids 1 # Bowel Movements 1 1 - Exam GENERAL EXAM: Alert, very pleasant, 84-year-old white male, on 4 L of oxygen and the pulse ox of 90% comfortable in no apparent distress. HEAD: Normocephalic/atraumatic. EYES: Normal reaction of pupils, equal size. Conjunctiva pink, sclera white. NOSE: Clear with pink turbinates. THROAT: No erythema or exudates. NECK: No masses, no JVD, no thyroid enlargement, no adenopathy. CHEST: No chest wall deformity. Symmetrical expansion. LUNGS: Equal air entry with bibasilar coarse crackles CVS: Regular rate and rhythm, normal S1 and S2, no gallops, no murmurs, no rubs ABDOMEN: Soft, nontender. No hepatosplenomegaly, normal bowel sounds, no guarding or rigidity. EXTREMITIES: No clubbing, no edema, no cyanosis, 2+ pulses and upper and lower extremities. MUSCULOSKELETAL: Muscle strength and tone normal. SPINE: No scoliosis or deformity SKIN: No rashes CENTRAL NERVOUS SYSTEM: Alert and oriented -3. No focal deficits, tone is normal in all 4 extremities. PSYCHIATRIC: Alert and oriented -3. Appropriate affect. Intact judgment and insight. - Labs CBC & Chem 7: 11/13/20 07:11 11/13/20 07:11 Labs: Abnormal Lab Results - Last 24 Hours (Table) 11/13/20 11/13/20 Range/Units 07:11 07:11 WBC 14.2 H (3.8-10.6) k/uL RBC 6.06 H (4.30-5.90) m/uL RDW 16.6 H (11.5-15.5) % Neutrophils # (Manual) 11.60 H (1.3-7.7) k/uL Metamyelocytes # (Man) 0.14 H (0) k/uL Myelocytes # (Manual) 0.14 H (0) k/uL Chloride 108 H (98-107) mmol/L Carbon Dioxide 21 L (22-30) mmol/L Glucose 103 H (74-99) mg/dL Lactate Dehydrogenase 1473 H (313-618) U/L C-Reactive Protein 2.8 H (<1.0) mg/dL Assessment and Plan Plan: Assessment: #1. Acute hypoxic respiratory failure secondary to COVID-19 pneumonia, and patient was outside the window for Remdesivir. Patient is being treated with Decadron, prophylactic Lovenox, and multivitamins #2. Elevated inflammatory markers secondary to COVID-19 infection #3. Elevated d-dimer of 1.44 on admission, with no CTA evidence of pulmonary embolism, patient remains on prophylactic Lovenox #4. History of dementia #5. Hypertension #6. Hyperlipidemia #7. Resident of the [facility] #8. History of sleep apnea on CPAP #9. Former smoker Plan: Continue current dose Decadron Continue Lovenox BiPAP support at night and as needed during the day We'll continue to follow clinical course Follow-up d-dimer and long-term markers tomorrow I performed a history & physical examination of the patient and discussed their management with my nurse practitioner, Laureen Day. I reviewed the nurse practitioner's note and agree with the documented findings and plan of care. Lung sounds are positive for diminished breath sounds. The findings and the impression was discussed with the patient. I attest to the documentation by the nurse practitioner. Time with Patient: Less than 30
[2020-11-13] MEDS: QUEtiapine 25 MG TAB PO SCH (20:43)
--- NOTE | 2020-11-13 21:05 | P.PN ---
Subjective Progress Note Date: 11/13/20 Principal diagnosis: Acute hypoxemic respiratory failure, secondary to COVID 19 pneumonia. 11/13/2020 patient is seen and evaluated in follow-up on selective care unit, remains on 4 L of oxygen with a pulse ox of 90%, he did wear BiPAP last night with pressures of 16/8 and FiO2 of 40%, he is breathing comfortably, currently sitting up in the chair, he is on point normal saline at a rate of 80 ML per hour. Vital signs are reviewed and stable; labs have been reviewed showing white blood cell count of 14.2, hemoglobin 16.5, sodium is 139, potassium is 4.0, chloride is 108, CO2 is 21, B1 is 18 and creatinine 0.76, pro calcitonin level was negative 2 and 0.07. Patient was outside the window for Remdesivir, he continues on conservative treatment with steroids, and prophylactic Lovenox. He is also receiving multivitamins. Objective - Vital Signs Vital signs: Vital Signs Temp 97.9 F 11/13/20 03:15 Pulse 56 L 11/13/20 03:15 Resp 24 11/13/20 03:15 BP 159/70 11/13/20 03:15 Pulse Ox 91 L 11/13/20 03:15 Intake & Output 11/12/20 11/13/20 11/13/20 18:59 06:59 18:59 Intake Total 118 Balance 118 Weight 104.5 kg Intake: Oral 118 Other: Voiding Method Diaper # Voids 1 # Bowel Movements 1 1 - Exam GENERAL: The patient is alert and oriented x3, not in any acute distress. Well developed, well nourished. HEENT: Pupils are round and equally reacting to light. EOMI. No scleral icterus. No conjunctival pallor. Normocephalic, atraumatic. No pharyngeal erythema. No t hyromegaly. CARDIOVASCULAR: S1 and S2 present. No murmurs, rubs, or gallops. PULMONARY: Chest is clear to auscultation, no wheezing or crackles. ABDOMEN: Soft, nontender, nondistended, normoactive bowel sounds. No palpable organomegaly. MUSCULOSKELETAL: No joint swelling or deformity. EXTREMITIES: No cyanosis, clubbing, or pedal edema. NEUROLOGICAL: Gross neurological examination did not reveal any focal deficits. SKIN: No rashes. - Labs CBC & Chem 7: 11/13/20 07:11 11/13/20 07:11 Labs: Abnormal Lab Results - Last 24 Hours (Table) 11/12/20 11/12/20 11/13/20 Range/Units 11:45 11:45 07:11 RDW 16.8 H (11.5-15.5) % Lymphocytes # 0.5 L (1.0-4.8) k/uL Chloride 110 H 108 H (98-107) mmol/L Carbon Dioxide 21 L (22-30) mmol/L BUN 27 H (9-20) mg/dL Glucose 128 H 103 H (74-99) mg/dL Lactate Dehydrogenase 1075 H 1473 H (313-618) U/L C-Reactive Protein 3.8 H 2.8 H (<1.0) mg/dL Assessment and Plan Assessment: 1. Acute hypoxemic respiratory failure, secondary to COVID 19 pneumonia. - The patient is currently on vitamin C, and zinc. The patient should also receive vitamin D3. The patient's getting Lovenox 40 subcu daily. The patient should also get Decadron 6 mg a day. The patient is outside the window for REM. The patient is not a candidate for TOCI. - patient is started on ceftriaxone and azithromycin; pulmonary service on board and recommending to discontinue antibiotics 2. Elevated inflammatory markers secondary to coronavirus infection. - no evidence of pulmonary embolism on CT angiogram. - Patient remains on subcu Lovenox at 40 mg subcu daily for DVT prophylaxis 3. Hyperlipidemia; Lipitor 10 mg daily. 4. Hypertension; takes amlodipine 10 mg daily and lisinopril 20 mg daily. 5. History of dementia; Aricept 10 mg by mouth daily. DVT prophylaxis; SCDs/subcu Lovenox CODE STATUS full code
[2020-11-14] MEDS: ENOXAPARIN 40 MG/0.4 ML SYRINGE SQ SCH (05:54)
[2020-11-14] MEDS: PANTOPRAZOLE 40 MG TABLET PO SCH (05:55)
[2020-11-14] MEDS: ASCORBIC ACID 500 MG TAB PO SCH (05:55)
[2020-11-14] MEDS: ATORVASTATIN 10 MG TAB PO SCH (05:55)
[2020-11-14] MEDS: amLODIPine 10 MG TAB PO SCH (05:55)
[2020-11-14] MEDS: DONEPEZIL 10 MG TAB PO SCH (05:55)
[2020-11-14] MEDS: ZINC SULFATE 220 MG CAP PO SCH (05:56)
--- NOTE | 2020-11-14 07:17 | XR ---
EXAMINATION TYPE: XR chest 1V portable DATE OF EXAM: 11/14/2020 COMPARISON: 11/11/2020 HISTORY: Cough TECHNIQUE: Single frontal view of the chest is obtained. FINDINGS: Bilateral areas of infiltrate noted. Tiny bilateral effusion suspected. Heart size stable. No pneumothorax. Arthropathy of the shoulders. IMPRESSION: Bilateral infiltrate stable.
--- NOTE | 2020-11-14 08:31 | P.PN ---
Subjective Principal diagnosis: Acute hypoxemic respiratory failure, secondary to COVID 19 pneumonia. 11/13/2020 patient is seen and evaluated in follow-up on selective care unit, remains on 4 L of oxygen with a pulse ox of 90%, he did wear BiPAP last night with pressures of 16/8 and FiO2 of 40%, he is breathing comfortably, currently sitting up in the chair, he is on point normal saline at a rate of 80 ML per hour. Vital signs are reviewed and stable; labs have been reviewed showing white blood cell count of 14.2, hemoglobin 16.5, sodium is 139, potassium is 4.0, chloride is 108, CO2 is 21, B1 is 18 and creatinine 0.76, pro calcitonin level was negative 2 and 0.07. Patient was outside the window for Remdesivir, he continues on conservative treatment with steroids, and prophylactic Lovenox. He is also receiving multivitamins. 11/14/2020 Patient is alert oriented 1 I don't know his baseline patient does have sleep apnea supposed to wear BiPAP at home. Patient is still requiring BiPAP at nighttime. Patient is presently on 4 L of oxygen patient also requirement remained stable. Patient is on 80 mL of normal saline which will be discontinued at this time. Patient was started on Decadron today. Patient has been confused patient appears to have dementia, benzodiazepines will be discontinued will use Seroquel on as-needed basis for the agitation. Constitutional: Denied any fatigue denied any fever. Cardio vascular: denied any chest pain, palpitations Gastrointestinal denied any nausea vomiting Pulmonary: Denied any shortness of breath cough Neurologic denied any new focal deficits Patient is significantly confused and not a reliable historian All inpatient medications were reviewed and appropriate changes in these medications as dictated in the interval history and assessment and plan. Objective - Vital Signs Vital signs: Vital Signs Temp 97.9 F 11/14/20 04:25 Pulse 79 11/14/20 04:25 Resp 21 11/14/20 04:25 BP 123/79 11/14/20 04:25 Pulse Ox 91 L 11/14/20 04:25 Intake & Output 11/13/20 11/14/20 11/14/20 18:59 06:59 18:59 Intake Total 640 Output Total 250 Balance 390 Weight 104 kg Intake: Intake, IV Titration 640 Amount Sodium Chloride 0.9% 1, 640 000 ml @ 80 mls/hr IV . [id number] [facility] Rx#:[id number] Oral 0 Output: Urine 250 Other: Voiding Method Diaper # Voids 1 # Bowel Movements 1 - Exam PHYSICAL EXAMINATION: GENERAL: The patient is alert and oriented x1, baseline is not clear, not in any acute distress. Well developed, well nourished. HEENT: Pupils are round and equally reacting to light. EOMI. No scleral icterus. No conjunctival pallor. Normocephalic, atraumatic. No pharyngeal erythema. No thyromegaly. CARDIOVASCULAR: S1 and S2 present. No murmurs, rubs, or gallops. PULMONARY: Chest is clear to auscultation, no wheezing or crackles. ABDOMEN: Soft, nontender, nondistended, normoactive bowel sounds. No palpable or ganomegaly. MUSCULOSKELETAL: No joint swelling or deformity. EXTREMITIES: No cyanosis, clubbing, or pedal edema. NEUROLOGICAL: Gross neurological examination did not reveal any focal deficits. SKIN: No rashes. - Labs CBC & Chem 7: 11/13/20 07:11 11/13/20 07:11 Labs: Abnormal Lab Results - Last 24 Hours (Table) 11/13/20 11/13/20 Range/Units 07:11 07:11 WBC 14.2 H (3.8-10.6) k/uL RBC 6.06 H (4.30-5.90) m/uL RDW 16.6 H (11.5-15.5) % Neutrophils # (Manual) 11.60 H (1.3-7.7) k/uL Metamyelocytes # (Man) 0.14 H (0) k/uL Myelocytes # (Manual) 0.14 H (0) k/uL Chloride 108 H (98-107) mmol/L Carbon Dioxide 21 L (22-30) mmol/L Glucose 103 H (74-99) mg/dL Lactate Dehydrogenase 1473 H (313-618) U/L C-Reactive Protein 2.8 H (<1.0) mg/dL Assessment and Plan Plan: 1. Acute hypoxemic respiratory failure, secondary to COVID 19 pneumonia. - The patient is currently on vitamin C, and zinc. The patient should also receive vitamin D3. The patient's getting Lovenox 40 subcu daily. The patient is on Decadron 6 mg a day. The patient is outside the window for REM. The patient is not a candidate for TOCI. Patient is still on now for liters of oxygen - no evidence of pulmonary embolism on CT angiogram. - Patient remains on subcu Lovenox at 40 mg subcu daily for DVT prophylaxis 2. Altered mental status, delirium: Most probably secondary to metabolic and toxic encephalopathy from infection and hypoxemia 3. Hyperlipidemia; Lipitor 10 mg daily. 4. Hypertension; takes amlodipine 10 mg daily and lisinopril 20 mg daily. 5. History of dementia; Aricept 10 mg by mouth daily. 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
[2020-11-14] MEDS: ALBUTEROL HFA INHALER INHALATION PRN (08:56)
[2020-11-14] MEDS ORDERED: dexAMETHasone 4 MG TAB PO SCH (09:00)
[2020-11-14] MEDS: SODIUM CHLORIDE 0.9% 1,000 ML IV SCH ×2 (09:26→22:25)
[2020-11-14] MEDS: lisinopriL 20 MG TAB PO SCH (09:26)
[2020-11-14 10:27] LABS: African American GFR (CKD) >90 (>60 ml/min/1.73 sqM); Anion Gap 12 mmol/L; Blood Urea Nitrogen 10 mg/dL (9-20); C Reactive Protein 6.1 mg/dL (<1.0); Calcium 8.6 mg/dL (8.4-10.2); Carbon Dioxide 20 mmol/L (22-30); Chloride 108 mmol/L (98-107); Glucose 105 mg/dL (74-99); LDH 1159 U/L (313-618); Non-African American GFR(CKD) 85 (>60 ml/min/1.73 sqM); Potassium 4.1 mmol/L (3.5-5.1); Sodium 140 mmol/L (137-145)
[2020-11-14] MEDS: DEXAMETHASONE SOD PHOSPHATE 10 MG/ML 1 ML VIAL IV SCH (12:01)
--- NOTE | 2020-11-14 13:32 | P.PN ---
Subjective Progress Note Date: 11/14/20 This is an 84-year-old male, brought into the emergency room, on November 11, with complaints of shortness of breath. He was brought in by EMS. The patient apparently was at the [facility] and was then transferred to the some other facility in [place], because they have a COVID unit. Apparently, because his shortness of breath was getting worse, the patient was transferred to the emergency room to be evaluated. The patient is a very poor historian. He apparently has severe dementia. He is not really able to tell me why he is in the hospital. He is very confused about where he was prior to this hospital. Currently, the patient is on 4 L nasal cannula. He is getting saline at 80 mL an hour. He had a CT angiogram which was negative for pulmonary embolism but did show diffuse bilateral infiltrates, consistent with coronavirus pneumonia. The patient apparently has a history of dementia, hyperlipidemia, hypertension, and foot drop. White count 8.9, hemoglobin 16.1, hematocrit 48.2, platelet count 239,000. Blood gases show pO2 128, pCO2 of 29, pH is 7.51. Sodium 141, potassium 4.6, chlorides 110, CO2 23, anion gap 8, BUN 27, and creatinine 0.84. His LDH is 1075 and a C-reactive protein is 3.8. His d-dimer is only 1.44. Chest x-ray and CAT scan are reviewed, and are consistent with the diagnosis. On 11/13/2020 patient seen in follow-up on [facility] care unit, he is currently on 4 L of oxygen with a pulse ox of 90%, he did wear BiPAP last night with pressures of 16/8 and FiO2 of 40%, he is breathing comfortably, currently sitting up in the chair, he is on point normal saline at a rate of 80 ML per hour. Vital signs have been stable, he has had no fever or chills. No new chest x-ray today, today's labs have been reviewed showing white blood cell count of 14.2, hemoglobin 16.5, sodium is 139, potassium is 4.0, chloride is 108, CO2 is 21, B1 is 18 and creatinine 0.76, pro calcitonin level was negative 2 and 0.07. Patient was outside the window for Remdesivir, he continues on conservative treatment with steroids, and prophylactic Lovenox. He is also re ceiving multivitamins. On 11/14/2020, the patient is looking quite toxic and is having labored sherin athing. He was on oxygen 4 L and he was noted to be desaturating and for that reason the patient was transitioned to have bipolar pressure of 16/8 cm of water with an FiO2 of 40%. Currently generating a tidal volume of around 5 40 mL and the respiratory rate is around 32. The patient remains on Decadron 6 mg IV every 24 hours. The patient is also on Lovenox 40 mg subcu for DVT prophylaxis. Has a d-dimer of 1.34. The patient has an LDH level of 1159 and the CRP level is at 6.1. The rest of the electrolytes are within normal limits. Serum bicarb is down to 20, BUN is at 10 with a creatinine of 0.7. D-dimer is at 1.34. The patient was found to be very much lethargic. She would respond to simple commands and he would grimace to painful stimulation. He is a group home resident. He is a full CODE STATUS. Objective - Vital Signs Vital signs: Vital Signs Temp 97.9 F 11/14/20 04:25 Pulse 75 11/14/20 11:58 Resp 20 11/14/20 11:58 BP 149/80 11/14/20 11:58 Pulse Ox 97 11/14/20 11:58 Intake & Output 11/13/20 11/14/20 11/14/20 18:59 06:59 18:59 Intake Total 640 Output Total 250 Balance 390 Weight 104 kg Intake: Intake, IV Titration 640 Amount Sodium Chloride 0.9% 1, 640 000 ml @ 80 mls/hr IV . [id number] [facility] Rx#:[id number] Oral 0 Output: Urine 250 Other: Voiding Method Diaper Diaper # Voids 1 # Bowel Movements 1 - Exam GENERAL EXAM: Alert, very pleasant, 84-year-old white male, on BiPAP at a pressure of 16/8 cm of water and FiO2 of 40% HEAD: Normocephalic/atraumatic. EYES: Normal reaction of pupils, equal size. Conjunctiva pink, sclera white. NOSE: Clear with pink turbinates. THROAT: No erythema or exudates. NECK: No masses, no JVD, no thyroid enlargement, no adenopathy. CHEST: No chest wall deformity. Symmetrical expansion. LUNGS: Equal air entry with bibasilar coarse crackles CVS: Regular rate and rhythm, normal S1 and S2, no gallops, no murmurs, no rubs ABDOMEN: Soft, nontender. No hepatosplenomegaly, normal bowel sounds, no guarding or rigidity. EXTREMITIES: No clubbing, no edema, no cyanosis, 2+ pulses and upper and lower extremities. MUSCULOSKELETAL: Muscle strength and tone normal. SPINE: No scoliosis or deformity SKIN: No rashes CENTRAL NERVOUS SYSTEM: Alert and oriented -3. No focal deficits, tone is normal in all 4 extremities. PSYCHIATRIC: Alert and oriented -3. Appropriate affect. Intact judgment and insight. - Labs CBC & Chem 7: 11/13/20 07:11 11/14/20 09:34 Labs: Abnormal Lab Results - Last 24 Hours (Table) 11/14/20 11/14/20 Range/Units 09:34 09:34 D-Dimer 1.34 H (<0.60) mg/L FEU Chloride 108 H (98-107) mmol/L Carbon Dioxide 20 L (22-30) mmol/L Glucose 105 H (74-99) mg/dL Lactate Dehydrogenase 1159 H (313-618) U/L C-Reactive Protein 6.1 H (<1.0) mg/dL Assessment and Plan Plan: #1. Acute hypoxic respiratory failure secondary to COVID-19 pneumonia, and patient was outside the window for Remdesivir. Patient is being treated with Decadron, prophylactic Lovenox, and multivitamins, the patient's condition decompensated and the patient was originally on 40 to about 2 by nasal cannula and currently is on a BiPAP at a pressure of 16/8 cm of water with an FiO2 of 40%. He has also developed some diminished level of consciousness along with acute hypoxic respiratory failure.The chest x-ray showing bilateral areas of infiltrate and tiny bilateral effusions suspected. Heart size is stable. No pneumothorax. There are stable bilateral pulmonary infiltrates noted related to COVID-19 related pneumonia. #2. Elevated inflammatory markers secondary to COVID-19 infection #3. Elevated d-dimer of 1.44 on admission, with no CTA evidence of pulmonary embolism, patient remains on prophylactic Lovenox #4. History of dementia #5. Hypertension #6. Hyperlipidemia #7. Resident of the [facility] #8. History of sleep apnea on CPAP #9. Former smoker Plan Continue BiPAP for restless support Titrate FiO2 to maintain saturation above 90% Monitor mental status Continue Decadron Continue Lovenox Monitor inflammatory markers Establish a CODE STATUS and this is very important as the patient may potentially require intubation mechanical ventilation at a later stage specially if he develops worsening of respirator insufficiency We'll continue to follow.
[2020-11-14 16:52] LABS: Glucose,Whole Blood 115 mg/dL (75-99)
[2020-11-14] MEDS: QUEtiapine 25 MG TAB PO PRN (18:24)
[2020-11-14 20:31] LABS: Glucose,Whole Blood 152 mg/dL (75-99)
[2020-11-15 06:10] LABS: Glucose,Whole Blood 104 mg/dL (75-99)
[2020-11-15] MEDS: ASCORBIC ACID 500 MG TAB PO SCH (06:12)
[2020-11-15] MEDS: DONEPEZIL 10 MG TAB PO SCH (06:12)
[2020-11-15] MEDS: amLODIPine 10 MG TAB PO SCH (06:12)
[2020-11-15] MEDS: ENOXAPARIN 40 MG/0.4 ML SYRINGE SQ SCH (06:12)
[2020-11-15] MEDS: ATORVASTATIN 10 MG TAB PO SCH (06:12)
[2020-11-15] MEDS: ZINC SULFATE 220 MG CAP PO SCH (06:12)
[2020-11-15] MEDS: PANTOPRAZOLE 40 MG TABLET PO SCH (06:13)
--- NOTE | 2020-11-15 07:46 | P.PN ---
Subjective Principal diagnosis: Acute hypoxemic respiratory failure, secondary to COVID 19 pneumonia. 11/13/2020 patient is seen and evaluated in follow-up on selective care unit, remains on 4 L of oxygen with a pulse ox of 90%, he did wear BiPAP last night with pressures of 16/8 and FiO2 of 40%, he is breathing comfortably, currently sitting up in the chair, he is on point normal saline at a rate of 80 ML per hour. Vital signs are reviewed and stable; labs have been reviewed showing white blood cell count of 14.2, hemoglobin 16.5, sodium is 139, potassium is 4.0, chloride is 108, CO2 is 21, B1 is 18 and creatinine 0.76, pro calcitonin level was negative 2 and 0.07. Patient was outside the window for Remdesivir, he continues on conservative treatment with steroids, and prophylactic Lovenox. He is also receiving multivitamins. 11/14/2020 Patient is alert oriented 1 I don't know his baseline patient does have sleep apnea supposed to wear BiPAP at home. Patient is still requiring BiPAP at nighttime. Patient is presently on 4 L of oxygen patient also requirement remained stable. Patient is on 80 mL of normal saline which will be discontinued at this time. Patient was started on Decadron today. Patient has been confused patient appears to have dementia, benzodiazepines will be discontinued will use Seroquel on as-needed basis for the agitation. 11/15/2020 Patient is on 50 L of oxygen overnight events respiratory status remains stable today d-dimer is around 1.4. Patient is drowsy and sleepy. Constitutional: Denied any fatigue denied any fever. Cardio vascular: denied any chest pain, palpitations Gastrointestinal denied any nausea vomiting Pulmonary: Denied any shortness of breath cough Neurologic denied any new focal deficits Patient is significantly confused and not a reliable historian All inpatient medications were reviewed and appropriate changes in these medications as dictated in the interval history and assessment and plan. Objective - Vital Signs Vital signs: Vital Signs Temp 97.6 F 11/15/20 03:50 Pulse 66 11/15/20 03:50 Resp 19 11/15/20 03:50 BP 153/79 11/15/20 03:50 Pulse Ox 98 11/15/20 03:50 Intake & Output 11/14/20 11/15/20 11/15/20 18:59 06:59 18:59 Output Total 1000 Balance -1000 Weight 61 kg Output: Urine 1000 Other: Voiding Method Diaper Diaper External Catheter # Voids 2 - Exam PHYSICAL EXAMINATION: GENERAL: The patient is alert and oriented x1, baseline is not clear, not in any acute distress. Well developed, well nourished. HEENT: Pupils are round and equally reacting to light. EOMI. No scleral icterus. No conjunctival pallor. Normocephalic, atraumatic. No pharyngeal erythema. No thyromegaly. CARDIOVASCULAR: S1 and S2 present. No murmurs, rubs, or gallops. PULMONARY: Chest is clear to auscultation, no wheezing or crackles. ABDOMEN: Soft, nontender, nondistended, normoactive bowel sounds. No palpable organomegaly. MUSCULOSKELETAL: No joint swelling or deformity. EXTREMITIES: No cyanosis, clubbing, or pedal edema. NEUROLOGICAL: Gross neurological examination did not reveal any focal deficits. SKIN: No rashes. - Labs CBC & Chem 7: 11/13/20 07:11 11/14/20 09:34 Labs: Abnormal Lab Results - Last 24 Hours (Table) 11/14/20 11/14/20 11/14/20 Range/Units 09:34 09:34 16:50 D-Dimer 1.34 H (<0.60) mg/L FEU Chloride 108 H (98-107) mmol/L Carbon Dioxide 20 L (22-30) mmol/L Glucose 105 H (74-99) mg/dL POC Glucose (mg/dL) 115 H (75-99) mg/dL Lactate Dehydrogenase 1159 H (313-618) U/L C-Reactive Protein 6.1 H (<1.0) mg/dL 11/14/20 11/15/20 Range/Units 20:30 06:09 D-Dimer (<0.60) mg/L FEU Chloride (98-107) mmol/L Carbon Dioxide (22-30) mmol/L Glucose (74-99) mg/dL POC Glucose (mg/dL) 152 H 104 H (75-99) mg/dL Lactate Dehydrogenase (313-618) U/L C-Reactive Protein (<1.0) mg/dL Assessment and Plan Plan: 1. Acute hypoxemic respiratory failure, secondary to COVID 19 pneumonia. - The patient is currently on vitamin C, and zinc. The patient should also receive vitamin D3. The patient's getting Lovenox 40 subcu daily. The patient is on Decadron 6 mg a day. The patient is outside the window for REM. The patient is not a candidate for TOCI. Patient is presently on 15 L of oxygen patient Patient is still on now for liters of oxygen - no evidence of pulmonary embolism on CT angiogram. - Patient remains on subcu Lovenox at 40 mg subcu daily for DVT prophylaxis 2. Altered mental status, delirium: Most probably secondary to metabolic and toxic encephalopathy from infection and hypoxemia 3. Hyperlipidemia; Lipitor 10 mg daily. 4. Hypertension; takes amlodipine 10 mg daily and lisinopril 20 mg daily. 5. History of dementia; Aricept 10 mg by mouth daily. 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
[2020-11-15 07:54] LABS: Anisocytosis Slight; HCT 45.7 % (39.0-53.0); HGB 15.2 gm/dL (13.0-17.5); MCH 27.1 pg (25.0-35.0); MCHC 33.3 g/dL (31.0-37.0); MCV 81.5 fL (80.0-100.0); Platelet Count 263 k/uL (150-450); RBC 5.61 m/uL (4.30-5.90); RDW 16.9 % (11.5-15.5); WBC 8.9 k/uL (3.8-10.6)
[2020-11-15] MEDS: DEXAMETHASONE SOD PHOSPHATE 10 MG/ML 1 ML VIAL IV SCH (08:22)
[2020-11-15] MEDS: lisinopriL 20 MG TAB PO SCH (08:22)
[2020-11-15 08:30] LABS: African American GFR (CKD) >90 (>60 ml/min/1.73 sqM); Anion Gap 11 mmol/L; Blood Urea Nitrogen 11 mg/dL (9-20); Calcium 8.6 mg/dL (8.4-10.2); Carbon Dioxide 16 mmol/L (22-30); Chloride 112 mmol/L (98-107); Glucose 113 mg/dL (74-99); Non-African American GFR(CKD) 86 (>60 ml/min/1.73 sqM); Potassium 4.3 mmol/L (3.5-5.1); Sodium 139 mmol/L (137-145)
[2020-11-15] MEDS: DEXTROSE 5% IN WATER 1,000 ML with SODIUM BICARB (1 MEQ/ML) 150 ML IV SCH (12:08)
[2020-11-15] MEDS: SODIUM CHLORIDE 0.9% 1,000 ML IV SCH (12:09)
[2020-11-15 12:46] LABS: Glucose,Whole Blood 132 mg/dL (75-99)
--- NOTE | 2020-11-15 13:19 | P.PN ---
Subjective Progress Note Date: 11/15/20 This is an 84-year-old male, brought into the emergency room, on November 11, with complaints of shortness of breath. He was brought in by EMS. The patient apparently was at the [facility] and was then transferred to the some other facility in [place], because they have a COVID unit. Apparently, because his shortness of breath was getting worse, the patient was transferred to the emergency room to be evaluated. The patient is a very poor historian. He apparently has severe dementia. He is not really able to tell me why he is in the hospital. He is very confused about where he was prior to this hospital. Currently, the patient is on 4 L nasal cannula. He is getting saline at 80 mL an hour. He had a CT angiogram which was negative for pulmonary embolism but did show diffuse bilateral infiltrates, consistent with coronavirus pneumonia. The patient apparently has a history of dementia, hyperlipidemia, hypertension, and foot drop. White count 8.9, hemoglobin 16.1, hematocrit 48.2, platelet count 239,000. Blood gases show pO2 128, pCO2 of 29, pH is 7.51. Sodium 141, potassium 4.6, chlorides 110, CO2 23, anion gap 8, BUN 27, and creatinine 0.84. His LDH is 1075 and a C-reactive protein is 3.8. His d-dimer is only 1.44. Chest x-ray and CAT scan are reviewed, and are consistent with the diagnosis. On 11/13/2020 patient [facility], he is currently on 4 L of oxygen with a pulse ox of 90%, he did wear BiPAP last night with pressures of 16/8 and FiO2 of 40%, he is breathing comfortably, currently sitting up in the chair, he is on point normal saline at a rate of 80 ML per hour. Vital signs have been stable, he has had no fever or chills. No new chest x-ray today, today's labs have been reviewed showing white blood cell count of 14.2, hemoglobin 16.5, sodium is 139, potassium is 4.0, chloride is 108, CO2 is 21, B1 is 18 and creatinine 0.76, pro calcitonin level was negative 2 and 0.07. Patient was outside the window for Remdesivir, he continues on conservative treatment with steroids, and prophylactic Lovenox. He is also re ceiving multivitamins. On 11/14/2020, the patient is looking quite toxic and is having labored sherin athing. He was on oxygen 4 L and he was noted to be desaturating and for that reason the patient was transitioned to have bipolar pressure of 16/8 cm of water with an FiO2 of 40%. Currently generating a tidal volume of around 5 40 mL and the respiratory rate is around 32. The patient remains on Decadron 6 mg IV every 24 hours. The patient is also on Lovenox 40 mg subcu for DVT prophylaxis. Has a d-dimer of 1.34. The patient has an LDH level of 1159 and the CRP level is at 6.1. The rest of the electrolytes are within normal limits. Serum bicarb is down to 20, BUN is at 10 with a creatinine of 0.7. D-dimer is at 1.34. The patient was found to be very much lethargic. She would respond to simple commands and he would grimace to painful stimulation. He is a assisted resident. He is a full CODE STATUS. 11/15/2020, the patient is being seen for a follow-up. He was seen in [facility] yesterday and on yesterday's evaluation he was wearing a BiPAP at a pressure of 16/8 cm of water , FiO2 of 40%. The patient was taken off the BiPAP. Apparently was pulling on his BiPAP all the time and he was having hard time keeping it on this morning. Based on that, the BiPAP was removed and the patient room air pulse ox was in the low 80s. He was placed on 4 L by nasal cannula to maintain saturation above 90%. The patient's currently is doing well. His breathing is normal and nonlabored. He denies having any chest pain. No significant cough or sputum production. His FiO2 be monitored and will use high flow oxygen if needed to maintain saturation above 90%. He remains con fused. He is oriented 1-2 advanced. He has underlying dementia and the patient is receiving cyanocobalamin assessment basis for agitation. Benzodiazepines have been discontinued. Non-anion gap metabolic acidosis and I started the patient on bicarb infusion at the rate of 75 mL an hour. He is on Aricept regarding his chronic dementia. Objective - Vital Signs Vital signs: Vital Signs Temp 98.7 F 11/15/20 12:00 Pulse 60 11/15/20 12:00 Resp 18 11/15/20 12:00 BP 166/72 11/15/20 12:00 Pulse Ox 96 11/15/20 12:00 Intake & Output 11/14/20 11/15/20 11/15/20 18:59 06:59 18:59 Intake Total 640 Output Total 1000 Balance -1000 640 Weight 61 kg Intake: Intake, IV Titration 640 Amount Sodium Chloride 0.9% 1, 640 000 ml @ 80 mls/hr IV . [id number] [facility] Rx#:[id number] Output: Urine 1000 Other: Voiding Method Diaper Diaper External Catheter # Voids 2 - Exam GENERAL EXAM: Alert, very pleasant, 84-year-old white male, on oxygen by nasal cannula, elderly male patient, looks quite debilitated. He is confused. No agitation at time of my evaluation. HEAD: Normocephalic/atraumatic., EYES: Normal reaction of pupils, equal size. Conjunctiva pink, sclera white. NOSE: Clear with pink turbinates. THROAT: No erythema or exudates. NECK: No masses, no JVD, no thyroid enlargement, no adenopathy. CHEST: No chest wall deformity. Symmetrical expansion. LUNGS: Equal air entry with bibasilar coarse crackles CVS: Regular rate and rhythm, normal S1 and S2, no gallops, no murmurs, no rubs ABDOMEN: Soft, nontender. No hepatosplenomegaly, normal bowel sounds, no gu arding or rigidity. EXTREMITIES: No clubbing, no edema, no cyanosis, 2+ pulses and upper and lower e xtremities. MUSCULOSKELETAL: Muscle strength and tone normal. SPINE: No scoliosis or deformity SKIN: No rashes CENTRAL NERVOUS SYSTEM: Alert and oriented -1. No focal deficits, tone is normal in all 4 extremities. The patient is confused. The patient is not agitated. PSYCHIATRIC: Alert and oriented -3. Appropriate affect. Intact judgment and insight. - Labs CBC & Chem 7: 11/15/20 07:02 11/15/20 07:02 Labs: Abnormal Lab Results - Last 24 Hours (Table) 11/14/20 11/14/20 11/15/20 Range/Units 16:50 20:30 06:09 RDW (11.5-15.5) % Chloride (98-107) mmol/L Carbon Dioxide (22-30) mmol/L Glucose (74-99) mg/dL POC Glucose (mg/dL) 115 H 152 H 104 H (75-99) mg/dL 11/15/20 11/15/20 11/15/20 Range/Units 07:02 07:02 12:41 RDW 16.9 H (11.5-15.5) % Chloride 112 H (98-107) mmol/L Carbon Dioxide 16 L (22-30) mmol/L Glucose 113 H (74-99) mg/dL POC Glucose (mg/dL) 132 H (75-99) mg/dL Assessment and Plan Plan: #1. Acute hypoxic respiratory failure secondary to COVID-19 pneumonia, and patient was outside the window for Remdesivir. Patient is being treated with Decadron, prophylactic Lovenox, and multivitamins, the patient's condition decompensated and the patient was originally on 40 l nasal cannula and currently is on a BiPAP at a pressure of 16/8 cm of water with an FiO2 of 40%. This m orning, the patient was unable to keep on his BiPAP mask and he was taken off the BiPAP and placed back on nasal cannula and oxygen flows being titrated to maintain saturation above 90%. He remains on Decadron. He remains confused. Quite debilitated. Still on Lovenox for DVT prophylaxis 40 mg every 24 hours. #2. Elevated inflammatory markers secondary to COVID-19 infection #3. Elevated d-dimer of 1.44 on admission, with no CTA evidence of pulmonary embolism, patient remains on prophylactic Lovenox #4. History of dementia, currently on Aricept #5. Hypertension #6. Hyperlipidemia #7. Resident of the [facility] #8. History of sleep apnea on CPAP #9. Former smoker #10 non-anion gap metabolic acidosis Plan Titrated oxygen flow to maintain a saturation above 90%. May utilize high flow oxygen if needed Discontinue BiPAP for now Monitor mentation Continue Lovenox Continue Decadron Start the patient on bicarb infusion with D5 and 150 mEq of sodium bicarbonate the rate of 75 mL an hour Titrate FiO2 to maintain saturation above 90% Monitor inflammatory markers Establish a CODE STATUS and this is very important as the patient may potentially require intubation mechanical ventilation at a later stage specially if he develops worsening of respirator insufficiency We'll continue to follow.
[2020-11-15 17:13] LABS: Glucose,Whole Blood 140 mg/dL (75-99)
[2020-11-15 19:55] LABS: Glucose,Whole Blood 139 mg/dL (75-99)
[2020-11-15] MEDS: QUEtiapine 25 MG TAB PO PRN (20:03)
[2020-11-15 23:38] VITALS: RESP 19
[2020-11-16 06:12] LABS: Glucose,Whole Blood 124 mg/dL (75-99)
[2020-11-16] MEDS: ASCORBIC ACID 500 MG TAB PO SCH (06:22)
[2020-11-16] MEDS: amLODIPine 10 MG TAB PO SCH (06:22)
[2020-11-16] MEDS: ENOXAPARIN 40 MG/0.4 ML SYRINGE SQ SCH (06:22)
[2020-11-16] MEDS: DONEPEZIL 10 MG TAB PO SCH (06:23)
[2020-11-16] MEDS: DEXTROSE 5% IN WATER 1,000 ML with SODIUM BICARB (1 MEQ/ML) 150 ML IV SCH (06:23)
[2020-11-16] MEDS: ATORVASTATIN 10 MG TAB PO SCH (06:23)
[2020-11-16] MEDS: ZINC SULFATE 220 MG CAP PO SCH (06:23)
[2020-11-16] MEDS: PANTOPRAZOLE 40 MG TABLET PO SCH (06:23)
--- NOTE | 2020-11-16 08:09 | P.DS ---
Providers Date of admission: 11/11/20 17:56 Attending physician: Annie Lizarraga Consults: 11/11/20 17:55 Consult Physician Routine Consulting Provider: Luiz Sanchez Consult Reason/Comments: covid, hypoxia Do you want consulting provider notified?: Yes Primary care physician: [facility] Course: Acute hypoxemic respiratory failure, secondary to COVID 19 pneumonia. 11/13/2020 patient is seen and evaluated in follow-up on selective care unit, remains on 4 L of oxygen with a pulse ox of 90%, he did wear BiPAP last night with pressures of 16/8 and FiO2 of 40%, he is breathing comfortably, currently sitting up in the chair, he is on point normal saline at a rate of 80 ML per hour. Vital signs are reviewed and stable; labs have been reviewed showing white blood cell count of 14.2, hemoglobin 16.5, sodium is 139, potassium is 4.0, chloride is 108, CO2 is 21, B1 is 18 and creatinine 0.76, pro calcitonin level was negative 2 and 0.07. Patient was outside the window for Remdesivir, he continues on conservative treatment with steroids, and prophylactic Lovenox. He is also receiving multivitamins. 11/14/2020 Patient is alert oriented 1 I don't know his baseline patient does have sleep apnea supposed to wear BiPAP at home. Patient is still requiring BiPAP at nighttime. Patient is presently on 4 L of oxygen patient also requirement remained stable. Patient is on 80 mL of normal saline which will be discontinued at this time. Patient was started on Decadron today. Patient has been confused patient appears to have dementia, benzodiazepines will be discontinued will use Seroquel on as-needed basis for the agitation. 11/15/2020 Patient is on 15 L of oxygen overnight events respiratory status remains stable today d-dimer is around 1.4. Patient is drowsy and sleepy. 11/16/2020 Patient is off oxygen, will be discharged to subacute intimidation today. PHYSICAL EXAMINATION: GENERAL: The patient is alert and oriented x1, which his baseline, not in any acute distress. Well developed, well nourished. HEENT: Pupils are round and equally reacting to light. EOMI. No scleral icterus. No conjunctival pallor. Normocephalic, atraumatic. No pharyngeal erythema. No thyromegaly. CARDIOVASCULAR: S1 and S2 present. No murmurs, rubs, or gallops. PULMONARY: Chest is clear to auscultation, no wheezing or crackles. ABDOMEN: Soft, nontender, nondistended, normoactive bowel sounds. No palpable organomegaly. MUSCULOSKELETAL: No joint swelling or deformity. EXTREMITIES: No cyanosis, clubbing, or pedal edema. NEUROLOGICAL: Gross neurological examination did not reveal any focal deficits. SKIN: No rashes. Assessment and Plan Plan: 1. Acute hypoxemic respiratory failure, secondary to COVID 19 pneumonia. - The patient is currently on vitamin C, and zinc. Patient is off oxygen patient will be discharged on for more days of 4 mg of Decadron. - no evidence of pulmonary embolism on CT angiogram. 2. Altered mental status, delirium: Most probably secondary to metabolic and toxic encephalopathy from infection and hypoxemia 3. Hyperlipidemia; Lipitor 10 mg daily. 4. Hypertension; takes amlodipine 10 mg daily and lisinopril 20 mg daily. 5. Advanced dementia; Aricept 10 mg by mouth daily. 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 1 can PO TID@0700,1300,1900 Zinc Sulfate [Orazinc] 220 mg PO DAILY@0700 Simvastatin [Zocor] 20 mg PO DAILY@0700 Lansoprazole [Prevacid] 15 mg PO DAILY lisinopriL [Zestril] 20 mg PO DAILY amLODIPine [Norvasc] 10 mg PO DAILY@0700 Melatonin 3 mg PO HS Ipratropium-Albuterol Nebulize [Duoneb 0.5 mg-3 mg/3 ml Soln] 3 ml INHALATION RT-Q6H PRN PRN Reason: Shortness Of Breath Acetaminophen [Tylenol Arthritis] 650 mg PO Q6H PRN PRN Reason: Pain Or Fever > 100.5 Albuterol Sulfate [Ventolin HFA] 2 puff INHALATION QID@07,13,19,23 QUEtiapine FUMARATE [SEROquel] 12.5 mg PO HS@2000 Enoxaparin [Lovenox] 40 mg SQ DAILY@0500 Ascorbic Acid [Vitamin C] 1,000 mg PO DAILY@0700 Donepezil HCl [Aricept] 10 mg PO DAILY@0700 Discharge Medication List Acetaminophen [Tylenol Arthritis] 650 mg PO Q6H PRN 11/11/20 [History] Albuterol Sulfate [Ventolin HFA] 2 puff INHALATION QID@07,13,19,23 11/11/20 [History] Ascorbic Acid [Vitamin C] 1,000 mg PO DAILY@0711/11/20 [History] Donepezil HCl [Aricept] 10 mg PO DAILY@0711/11/20 [History] Enoxaparin [Lovenox] 40 mg SQ DAILY@0500 11/11/20 [History] Health-Shake 1 can PO TID@0700,1300,19011/11/20 [History] Ipratropium-Albuterol Nebulize [Duoneb 0.5 mg-3 mg/3 ml Soln] 3 ml INHALATION RT-Q6H PRN 11/11/20 [History] Lansoprazole [Prevacid] 15 mg PO DAILY 11/11/20 [History] Melatonin 3 mg PO HS 11/11/20 [History] Metoclopramide [Reglan] 5 mg PO TID@0700,1300,1900 11/11/20 [History] QUEtiapine FUMARATE [SEROquel] 12.5 mg PO HS@199911/11/20 [History] Simvastatin [Zocor] 20 mg PO DAILY@69911/11/20 [History] Zinc Sulfate [Orazinc] 220 mg PO DAILY@0711/11/20 [History] amLODIPine [Norvasc] 10 mg PO DAILY@69911/11/20 [History] lisinopriL [Zestril] 20 mg PO DAILY 11/11/20 [History] Dexamethasone [Decadron] 4 mg PO DAILY #4 tablet 11/16/20 [Rx] Follow up Appointment(s)/Referral(s): Alli Smith MD [Primary Care Provider] - [facility], [NON-STAFF] - As Needed
[2020-11-16] MEDS: lisinopriL 20 MG TAB PO SCH (08:26)
[2020-11-16] MEDS: DEXAMETHASONE SOD PHOSPHATE 10 MG/ML 1 ML VIAL IV SCH (08:27)
--- NOTE | 2020-11-16 10:57 | P.PN ---
Subjective Progress Note Date: 11/16/20 This is an 84-year-old male, brought into the emergency room, on November 11, with complaints of shortness of breath. He was brought in by EMS. The patient apparently was at the [facility] and was then transferred to the some other facility in [place], because they have a COVID unit. Apparently, because his shortness of breath was getting worse, the patient was transferred to the emergency room to be evaluated. The patient is a very poor historian. He apparently has severe dementia. He is not really able to tell me why he is in the hospital. He is very confused about where he was prior to this hospital. Currently, the patient is on 4 L nasal cannula. He is getting saline at 80 mL an hour. He had a CT angiogram which was negative for pulmonary embolism but did show diffuse bilateral infiltrates, consistent with coronavirus pneumonia. The patient apparently has a history of dementia, hyperlipidemia, hypertension, and foot drop. White count 8.9, hemoglobin 16.1, hematocrit 48.2, platelet count 239,000. Blood gases show pO2 128, pCO2 of 29, pH is 7.51. Sodium 141, potassium 4.6, chlorides 110, CO2 23, anion gap 8, BUN 27, and creatinine 0.84. His LDH is 1075 and a C-reactive protein is 3.8. His d-dimer is only 1.44. Chest x-ray and CAT scan are reviewed, and are consistent with the diagnosis. On 11/13/2020 patient seen in follow-up on [facility], he is currently on 4 L of oxygen with a pulse ox of 90%, he did wear BiPAP last night with pressures of 16/8 and FiO2 of 40%, he is breathing comfortably, currently sitting up in the chair, he is on point normal saline at a rate of 80 ML per hour. Vital signs have been stable, he has had no fever or chills. No new chest x-ray today, today's labs have been reviewed showing white blood cell count of 14.2, hemoglobin 16.5, sodium is 139, potassium is 4.0, chloride is 108, CO2 is 21, B1 is 18 and creatinine 0.76, pro calcitonin level was negative 2 and 0.07. Patient was outside the window for Remdesivir, he continues on conservative treatment with steroids, and prophylactic Lovenox. He is also re ceiving multivitamins. On 11/14/2020, the patient is looking quite toxic and is having labored sherin athing. He was on oxygen 4 L and he was noted to be desaturating and for that reason the patient was transitioned to have bipolar pressure of 16/8 cm of water with an FiO2 of 40%. Currently generating a tidal volume of around 5 40 mL and the respiratory rate is around 32. The patient remains on Decadron 6 mg IV every 24 hours. The patient is also on Lovenox 40 mg subcu for DVT prophylaxis. Has a d-dimer of 1.34. The patient has an LDH level of 1159 and the CRP level is at 6.1. The rest of the electrolytes are within normal limits. Serum bicarb is down to 20, BUN is at 10 with a creatinine of 0.7. D-dimer is at 1.34. The patient was found to be very much lethargic. She would respond to simple commands and he would grimace to painful stimulation. He is a half-way resident. He is a full CODE STATUS. 11/15/2020, the patient is being seen for a follow-up. He was seen in [facility] yesterday and on yesterday's evaluation he was wearing a BiPAP at a pressure of 16/8 cm of water , FiO2 of 40%. The patient was taken off the BiPAP. Apparently was pulling on his BiPAP all the time and he was having hard time keeping it on this morning. Based on that, the BiPAP was removed and the patient room air pulse ox was in the low 80s. He was placed on 4 L by nasal cannula to maintain saturation above 90%. The patient's currently is doing well. His breathing is normal and nonlabored. He denies having any chest pain. No significant cough or sputum production. His FiO2 be monitored and will use high flow oxygen if needed to maintain saturation above 90%. He remains con fused. He is oriented 1-2 advanced. He has underlying dementia and the patient is receiving cyanocobalamin assessment basis for agitation. Benzodiazepines have been discontinued. Non-anion gap metabolic acidosis and I started the patient on bicarb infusion at the rate of 75 mL an hour. He is on Aricept regarding his chronic dementia. 11/16 2020, the patient is on room air oxygen. Pulse ox on room air is 95%. No significant desaturation. The patient was taken off the BiPAP. No new compla ints. The plan is to discharge this patient back to the half-way. He is resting comfortably in bed. His breathing is nonlabored. He is able to swallow food appropriately. No nausea. No vomiting. No diarrhea. No abdominal pain. On yesterday's evaluation, I give the patient bicarb infusion knowing that he had an underlying metabolic of non-anion gap metabolic acidosis and serum bicarb was 16. Follow-up labs from today are still pending. In any rate, he does have some baseline confusion. During my morning evaluation, he seems to be quite appropriate. He has profound weakness related to his age and comorbidities. He has underlying dementia. He is going back to the half-way. Objective - Vital Signs Vital signs: Vital Signs Temp 98.4 F 11/16/20 04:00 Pulse 95 11/16/20 04:00 Resp 19 11/16/20 04:00 BP 139/78 11/16/20 04:00 Pulse Ox 95 11/16/20 04:00 Intake & Output 11/15/20 11/16/20 11/16/20 18:59 06:59 18:59 Intake Total 640 Output Total 275 Balance 640 -275 Weight 57.5 kg Intake: Intake, IV Titration 640 Amount Sodium Chloride 0.9% 1, 640 000 ml @ 80 mls/hr IV . [id number] [facility] Rx#:[id number] Output: Urine 275 Other: Voiding Method Incontinent External Catheter # Voids 1 2 1 - Exam GENERAL EXAM: Alert, very pleasant, 84-year-old white male, on RA 02, elderly male patient, looks quite debilitated. He is confused. No agitation at time of my evaluation. HEAD: Normocephalic/atraumatic., EYES: Normal reaction of pupils, equal size. Conjunctiva pink, sclera white. NOSE: Clear with pink turbinates. THROAT: No erythema or exudates. NECK: No masses, no JVD, no thyroid enlargement, no adenopathy. CHEST: No chest wall deformity. Symmetrical expansion. LUNGS: Equal air entry with bibasilar coarse crackles CVS: Regular rate and rhythm, normal S1 and S2, no gallops, no murmurs, no rubs ABDOMEN: Soft, nontender. No hepatosplenomegaly, normal bowel sounds, no guarding or rigidity. EXTREMITIES: No clubbing, no edema, no cyanosis, 2+ pulses and upper and lower extremities. MUSCULOSKELETAL: Muscle strength and tone normal. SPINE: No scoliosis or deformity SKIN: No rashes CENTRAL NERVOUS SYSTEM: Alert and oriented -2-3. No focal deficits, tone is normal in all 4 extremities. The patient is confused. The patient is not agitated. PSYCHIATRIC: Alert and oriented -2-3 - Labs CBC & Chem 7: 11/15/20 07:02 11/15/20 07:02 Labs: Abnormal Lab Results - Last 24 Hours (Table) 11/15/20 11/15/20 11/15/20 Range/Units 12:41 17:11 19:50 POC Glucose (mg/dL) 132 H 140 H 139 H (75-99) mg/dL 11/16/20 Range/Units 06:08 POC Glucose (mg/dL) 124 H (75-99) mg/dL Assessment and Plan Plan: #1. Acute hypoxic respiratory failure secondary to COVID-19 pneumonia, and patient was outside the window for Remdesivir. Patient is being treated with Decadron, prophylactic Lovenox, and multivitamins. Clinically the patient improved and the patient is currently on room air oxygen. He remains on Decadron. He remains on Lovenox for DVT prophylaxis 40 mg subcu every 24 hours. No signs of any respiratory distress for now. #2. Elevated inflammatory markers secondary to COVID-19 infection #3. Elevated d-dimer of 1.44 on admission, with no CTA evidence of pulmonary embolism, patient remains on prophylactic Lovenox #4. History of dementia, currently on Aricept #5. Hypertension #6. Hyperlipidemia #7. Resident of the [facility] #8. History of sleep apnea on CPAP #9. Former smoker #10 non-anion gap metabolic acidosis, awaiting FU labs Plan Room air oxygen with a pulse ox of 95% Monitor mentation Continue Lovenox Continue Decadron, complete a total of 10 day course of Decadron Repeat serum bicarb prior to this patient going home Titrate FiO2 to maintain saturation above 90% Establish a CODE STATUS Possible discharge to half-way today.
[2020-11-16 11:51] VITALS: BP 141/69; PULSE 62; TEMP 98.6
[2020-11-16 11:53] LABS: Glucose,Whole Blood 123 mg/dL (75-99)
[2020-11-16 12:24] LABS: African American GFR (CKD) >90 (>60 ml/min/1.73 sqM); Anion Gap 5 mmol/L; Blood Urea Nitrogen 12 mg/dL (9-20); Calcium 8.5 mg/dL (8.4-10.2); Carbon Dioxide 28 mmol/L (22-30); Chloride 101 mmol/L (98-107); Glucose 134 mg/dL (74-99); Non-African American GFR(CKD) 85 (>60 ml/min/1.73 sqM); Potassium 3.4 mmol/L (3.5-5.1); Sodium 134 mmol/L (137-145)
== END 2020-11-16 12:25 | DRG 177 ==
LOC: EC 14:13 → 3SCARD 17:56
PROVIDERS: ADMIT Internal Medicine; ATTEND Internal Medicine
PROC: 5A09357 Assistance with Respiratory Ventilation, Less than 24 Consecutive Hours, Continuous Positive Airway Pressure (ICD-10-PCS; principal; 2020-11-11)
DX: U07.1 COVID-19 (principal); J12.82 Pneumonia due to coronavirus disease 2019; J96.01 Acute respiratory failure with hypoxia; G92 Toxic encephalopathy; E87.2 Acidosis; F03.90 Unspecified dementia, unspecified severity, without behavioral disturbance, psychotic disturbance, mood disturbance, and anxiety; G47.30 Sleep apnea, unspecified; Z99.89 Dependence on other enabling machines and devices; E78.5 Hyperlipidemia, unspecified; I10 Essential (primary) hypertension; Z79.899 Other long term (current) drug therapy; Z87.891 Personal history of nicotine dependence; M21.379 Foot drop, unspecified foot
CPT/HCPCS: 36415; 36600; 71045; 71275; 80048; 80053; 82728; 82805; 83605; 83615; 83735; 83880; 84145; 84484; 85025; 85027; 85379; 85610; 85730; 86140; 87636; 93005; 94640; 94660; 94760; 99291

== ENCOUNTER 2020-11-30 11:52 | Inpatient (IN) | payer MEDICARE, BC ==
[2020-11-30 12:04] LABS: Glucose,Whole Blood 115 mg/dL (75-99)
[2020-11-30] MEDS ORDERED: NALOXONE 0.4 MG/ML 1 ML VIAL IVP STA (12:25)
[2020-11-30] MEDS ORDERED: SODIUM CHLORIDE 0.9% 1,000 ML IV STA ×2 (12:25→13:34)
--- NOTE | 2020-11-30 12:33 | ED ---
General Adult HPI - General Chief complaint: Weakness Stated complaint: Failure to thrive Time Seen by Provider: 11/30/20 12:12 Source: patient Mode of arrival: ambulatory Limitations: no limitations - History of Present Illness Initial comments: Dictation was produced using [employer] dictation software. please excuse any grammatical, word or spelling errors. This patient was cared for during a federal and state declared state of emergency secondary to Covid 19 Chief Complaint: 84-year-old male presents with failure to thrive History of Present Illness: Is an 84-year-old male presents to the emergency department for failure to thrive. Patient has not been 5 days. Patient currently a resident admitted [place]. He is a poor historian and only states his name. According to nurse received report from EMS or return of concerns about his mental status. Transferred interpretation shows that he has a history of dementia. Unable to obtain secondary to mental status. PHYSICAL EXAM: General Impression: Oriented to place, lethargic, sleepy HEENT: Normocephalic atraumatic, extra-ocular movements intact, pupils bilaterally are pinpoint, mucous membranes moist. Cardiovascular: Heart regular rate and rhythm Chest: Able to complete full sentences, no retractions, no tachypnea Abdomen: abdomen soft, non-tender, non-distended, no organomegaly Musculoskeletal: Pulses present and equal in all extremities, no peripheral edema Motor: no focal deficits noted Neurological: CN II-XII grossly intact, no focal motor or sensory deficits noted Skin: Intact with no visualized rashes ED course: 84-year-old male presents to the emergency department for chief complaint of failure to thrive. Allegedly he has not eaten in 5 days. Vital signs upon arrival are within acceptable limits. Patient shows no signs of acute distress. He does have pinpoint pupils bilaterally. Medications were reviewed. Patient is not prescribed any opiates however he does take Seroquel regularly. He has a history of dementia. EKG interpretation: Ventricular rate 71, normal sinus rhythm, CA interval 172, QRS 90, QTc 469. No CA prolongation, no QTC prolongation, no ST or T-wave changes noted. EKG compared to 11/11/2020 showing no changes. Overall, this EKG is unremarkable Patient given Narcan with no effect. Laboratory evaluation obtained. CBC is unremarkable. Coag panel is negative. Metabolic panel shows sodium 155, BUN of 49 with creatinine 2.18. Rest labs are within acceptable limits. Clinical presentation consistent with acute kidney injury likely secondary to dehydration from poor oral intake. Patient be admitted with consultation to nephrology. - Related Data Home Medications Medication Instructions Recorded Confirmed Albuterol Sulfate [Ventolin HFA] 2 puff INHALATION QID@07,13,,11/11/20 11/30/20 Donepezil HCl [Aricept] 10 mg PO DAILY 11/11/20 11/30/20 Enoxaparin [Lovenox] 40 mg SQ DAILY 11/11/20 11/30/20 Health-Shake 1 can PO TID@0700,1300,1900 11/11/20 11/30/20 Ipratropium-Albuterol Nebulize 3 ml INHALATION RT-Q6H PRN 11/11/20 11/30/20 [Duoneb 0.5 mg-3 mg/3 ml Soln] Melatonin 3 mg PO HS 11/11/20 11/30/20 QUEtiapine FUMARATE [SEROquel] 12.5 mg PO HS@199911/11/20 11/30/20 amLODIPine [Norvasc] 10 mg PO DAILY 11/11/20 11/30/20 lisinopriL [Zestril] 20 mg PO DAILY 11/11/20 11/30/20 Acetaminophen Tab [Tylenol] 650 mg PO Q4H PRN 11/30/20 11/30/20 Omeprazole [PriLOSEC] 20 mg PO DAILY 11/30/20 11/30/20 Sodium Chloride 0.9% Irrigatio 125 ml IV TID 11/30/20 11/30/20 [Saline 0.9% Irrigation Bottle] ceFAZolin [Kefzol] 500 mg IV Q8H 11/30/20 11/30/20 Allergies Allergy/AdvReac Type Severity Reaction Status Date / Time No Known Allergies Allergy Verified 11/30/20 12:36 Review of Systems ROS Statement: Those systems with pertinent positive or pertinent negative responses have been documented in the HPI. ROS Other: All systems not noted in ROS Statement are negative. Past Medical History Past Medical History: Dementia, Hyperlipidemia, Hypertension, Sleep Apnea/CPAP/BIPAP Additional Past Medical History / Comment(s): Covid positive, foot drop, History of Any Multi-Drug Resistant Organisms: None Reported Past Surgical History: Unable to Obtain Past Psychological History: Unable to Obtain Smoking Status: Former smoker Past Alcohol Use History: Unable to Obtain Past Drug Use History: Unable to Obtain General Exam Limitations: no limitations Course Vital Signs 11/30/20 11/30/20 11/30/20 11:59 12:43 14:18 Temperature 97.5 F L Pulse Rate 86 74 Respiratory 18 20 20 Rate Blood Pressure 104/51 112/64 O2 Sat by Pulse 95 97 Oximetry Medical Decision Making - Lab Data Result diagrams: 11/30/20 11:56 11/30/20 11:56 Lab Results 11/30/20 11/30/20 11/30/20 Range/Units 11:56 11:56 11:56 WBC 8.1 (3.8-10.6) k/uL RBC 5.78 (4.30-5.90) m/uL Hgb 15.7 (13.0-17.5) gm/dL Hct 48.3 (39.0-53.0) % MCV 83.5 (80.0-100.0) fL MCH 27.2 (25.0-35.0) pg MCHC 32.6 (31.0-37.0) g/dL RDW 18.0 H (11.5-15.5) % Plt Count 127 L (150-450) k/uL MPV 8.1 Neutrophils % 72 % Lymphocytes % 11 % Monocytes % 9 % Eosinophils % 5 % Basophils % 1 % Neutrophils # 5.8 (1.3-7.7) k/uL Lymphocytes # 0.9 L (1.0-4.8) k/uL Monocytes # 0.7 (0-1.0) k/uL Eosinophils # 0.4 (0-0.7) k/uL Basophils # 0.1 (0-0.2) k/uL Manual Slide Review Performed Hypochromasia Slight Anisocytosis Slight PT 11.7 (9.0-12.0) sec INR 1.1 (<1.2) APTT 25.0 (22.0-30.0) sec Sodium 155 H (137-145) mmol/L Potassium 4.8 (3.5-5.1) mmol/L Chloride 125 H (98-107) mmol/L Carbon Dioxide 23 (22-30) mmol/L Anion Gap 7 mmol/L BUN 49 H (9-20) mg/dL Creatinine 2.18 H (0.66-1.25) mg/dL Est GFR (CKD-EPI)AfAm 31 (>60 ml/min/1.73 sqM) Est GFR (CKD-EPI)NonAf 27 (>60 ml/min/1.73 sqM) Glucose 116 H (74-99) mg/dL POC Glucose (mg/dL) (75-99) mg/dL POC Glu Service Rig Operator ID Plasma Lactic Acid Kevin (0.7-2.0) mmol/L Calcium 8.7 (8.4-10.2) mg/dL Magnesium 2.6 H (1.6-2.3) mg/dL Total Bilirubin 1.1 (0.2-1.3) mg/dL AST 39 (17-59) U/L ALT 21 (4-49) U/L Alkaline Phosphatase 95 (38-126) U/L Ammonia (<30) umol/L Troponin I (0.000-0.034) ng/mL Total Protein 6.2 L (6.3-8.2) g/dL Albumin 2.8 L (3.5-5.0) g/dL Urine Color Urine Appearance (Clear) Urine pH (5.0-8.0) Ur Specific [place] (1.001-1.035) Urine Protein (Negative) Urine Glucose (UA) (Negative) Urine Ketones (Negative) Urine Blood (Negative) Urine Nitrite (Negative) Urine Bilirubin (Negative) Urine Urobilinogen (<2.0) mg/dL Ur Leukocyte Esterase (Negative) Urine RBC (0-5) /hpf Urine WBC (0-5) /hpf Ur Squamous Epith Cells (0-4) /hpf Amorphous Sediment (None) /hpf Urine Bacteria (None) /hpf Hyaline Casts (0-2) /lpf Urine Mucus (None) /hpf Coronavirus (PCR) (Not Detectd) 11/30/20 11/30/20 11/30/20 Range/Units 11:56 11:56 11:58 WBC (3.8-10.6) k/uL RBC (4.30-5.90) m/uL Hgb (13.0-17.5) gm/dL Hct (39.0-53.0) % MCV (80.0-100.0) fL MCH (25.0-35.0) pg MCHC (31.0-37.0) g/dL RDW (11.5-15.5) % Plt Count (150-450) k/uL MPV Neutrophils % % Lymphocytes % % Monocytes % % Eosinophils % % Basophils % % Neutrophils # (1.3-7.7) k/uL Lymphocytes # (1.0-4.8) k/uL Monocytes # (0-1.0) k/uL Eosinophils # (0-0.7) k/uL Basophils # (0-0.2) k/uL Manual Slide Review Hypochromasia Anisocytosis PT (9.0-12.0) sec INR (<1.2) APTT (22.0-30.0) sec Sodium (137-145) mmol/L Potassium (3.5-5.1) mmol/L Chloride (98-107) mmol/L Carbon Dioxide (22-30) mmol/L Anion Gap mmol/L BUN (9-20) mg/dL Creatinine (0.66-1.25) mg/dL Est GFR (CKD-EPI)AfAm (>60 ml/min/1.73 sqM) Est GFR (CKD-EPI)NonAf (>60 ml/min/1.73 sqM) Glucose (74-99) mg/dL POC Glucose (mg/dL) 115 H (75-99) mg/dL POC Glu Service Rig Operator ID [facility] Plasma Lactic Acid Kevin 2.0 (0.7-2.0) mmol/L Calcium (8.4-10.2) mg/dL Magnesium (1.6-2.3) mg/dL Total Bilirubin (0.2-1.3) mg/dL AST (17-59) U/L ALT (4-49) U/L Alkaline Phosphatase (38-126) U/L Ammonia 12 (<30) umol/L Troponin I 0.033 (0.000-0.034) ng/mL Total Protein (6.3-8.2) g/dL Albumin (3.5-5.0) g/dL Urine Color Urine Appearance (Clear) Urine pH (5.0-8.0) Ur Specific [place] (1.001-1.035) Urine Protein (Negative) Urine Glucose (UA) (Negative) Urine Ketones (Negative) Urine Blood (Negative) Urine Nitrite (Negative) Urine Bilirubin (Negative) Urine Urobilinogen (<2.0) mg/dL Ur Leukocyte Esterase (Negative) Urine RBC (0-5) /hpf Urine WBC (0-5) /hpf Ur Squamous Epith Cells (0-4) /hpf Amorphous Sediment (None) /hpf Urine Bacteria (None) /hpf Hyaline Casts (0-2) /lpf Urine Mucus (None) /hpf Coronavirus (PCR) (Not Detectd) 11/30/20 11/30/20 Range/Units 12:31 12:31 WBC (3.8-10.6) k/uL RBC (4.30-5.90) m/uL Hgb (13.0-17.5) gm/dL Hct (39.0-53.0) % MCV (80.0-100.0) fL MCH (25.0-35.0) pg MCHC (31.0-37.0) g/dL RDW (11.5-15.5) % Plt Count (150-450) k/uL MPV Neutrophils % % Lymphocytes % % Monocytes % % Eosinophils % % Basophils % % Neutrophils # (1.3-7.7) k/uL Lymphocytes # (1.0-4.8) k/uL Monocytes # (0-1.0) k/uL Eosinophils # (0-0.7) k/uL Basophils # (0-0.2) k/uL Manual Slide Review Hypochromasia Anisocytosis PT (9.0-12.0) sec INR (<1.2) APTT (22.0-30.0) sec Sodium (137-145) mmol/L Potassium (3.5-5.1) mmol/L Chloride (98-107) mmol/L Carbon Dioxide (22-30) mmol/L Anion Gap mmol/L BUN (9-20) mg/dL Creatinine (0.66-1.25) mg/dL Est GFR (CKD-EPI)AfAm (>60 ml/min/1.73 sqM) Est GFR (CKD-EPI)NonAf (>60 ml/min/1.73 sqM) Glucose (74-99) mg/dL POC Glucose (mg/dL) (75-99) mg/dL POC Glu Service Rig Operator ID Plasma Lactic Acid Kevin (0.7-2.0) mmol/L Calcium (8.4-10.2) mg/dL Magnesium (1.6-2.3) mg/dL Total Bilirubin (0.2-1.3) mg/dL AST (17-59) U/L ALT (4-49) U/L Alkaline Phosphatase (38-126) U/L Ammonia (<30) umol/L Troponin I (0.000-0.034) ng/mL Total Protein (6.3-8.2) g/dL Albumin (3.5-5.0) g/dL Urine Color Dark Yellow Urine Appearance Cloudy (Clear) Urine pH 5.0 (5.0-8.0) Ur Specific [place] 1.020 (1.001-1.035) Urine Protein Trace H (Negative) Urine Glucose (UA) Negative (Negative) Urine Ketones Negative (Negative) Urine Blood Small H (Negative) Urine Nitrite Negative (Negative) Urine Bilirubin 1+ H (Negative) Urine Urobilinogen 2.0 (<2.0) mg/dL Ur Leukocyte Esterase Trace H (Negative) Urine RBC 3 (0-5) /hpf Urine WBC 2 (0-5) /hpf Ur Squamous Epith Cells <1 (0-4) /hpf Amorphous Sediment Rare H (None) /hpf Urine Bacteria Occasional H (None) /hpf Hyaline Casts 10 H (0-2) /lpf Urine Mucus Rare H (None) /hpf Coronavirus (PCR) Not Detected (Not Detectd) Disposition Clinical Impression: MAURO (acute kidney injury) Disposition: ADMITTED IP TO THIS [facility] Condition: Fair Referrals: Alli Smith MD [Primary Care Provider] - 1-2 days Decision Time: 14:24
[2020-11-30 12:57] LABS: Anisocytosis Slight; Basophils # (A) 0.1 k/uL (0-0.2); Basophils % (A) 1 %; Eosinophils # (A) 0.4 k/uL (0-0.7); Eosinophils % (A) 5 %; HCT 48.3 % (39.0-53.0); HGB 15.7 gm/dL (13.0-17.5); Hypochromasia Slight; Lymphocytes # (A) 0.9 k/uL (1.0-4.8); Lymphocytes % (A) 11 %; MCH 27.2 pg (25.0-35.0); MCHC 32.6 g/dL (31.0-37.0); MCV 83.5 fL (80.0-100.0); Mean Platelet Volume 8.1; Monocytes # (A) 0.7 k/uL (0-1.0); Monocytes % (A) 9 %; Neutrophils # (A) 5.8 k/uL (1.3-7.7); Neutrophils % (A) 72 %; Platelet Count 127 k/uL (150-450); RBC 5.78 m/uL (4.30-5.90); WBC 8.1 k/uL (3.8-10.6)
[2020-11-30 12:59] LABS: INR 1.1 (<1.2); Prothrombin Time 11.7 sec (9.0-12.0)
[2020-11-30 13:03] LABS: Albumin 2.8 g/dL (3.5-5.0); Calcium 8.7 mg/dL (8.4-10.2); Magnesium 2.6 mg/dL (1.6-2.3); Total Bilirubin 1.1 mg/dL (0.2-1.3); Total Protein 6.2 g/dL (6.3-8.2)
[2020-11-30 13:09] LABS: Potassium 4.8 mmol/L (3.5-5.1)
--- NOTE | 2020-11-30 14:06 | CT ---
EXAMINATION TYPE: CT brain wo con DATE OF EXAM: 11/30/2020 COMPARISON: CT brain 06/17/2020 HISTORY: Altered mental status CT DLP: 2209.4 mGycm Automated exposure control for dose reduction was used. Helical imaging through the brain FINDINGS: There is no interval change. Cortical atrophy is again noted. Periventricular white matter shows patc hy low attenuation as on prior exam. Calvarium is intact. Mild inflammatory change present in the lef t maxillary sinus, ethmoid air cells. Cerumen present in the external auditory canal on the left. IMPRESSION: NO SIGNIFICANT INTERVAL CHANGE. NO ACUTE ABNORMALITY. AGE-RELATED CHANGES OF ATROPHY AND PROBABLE CHR ONIC SMALL VESSEL ISCHEMIA. MILD SINUS DISEASE.
--- NOTE | 2020-11-30 14:06 | XR ---
EXAMINATION TYPE: XR chest 1V portable DATE OF EXAM: 11/30/2020 COMPARISON: 11/14/2020 HISTORY: Altered mental status TECHNIQUE: Single frontal view of the chest is obtained. FINDINGS: AP upright portable view of the chest was obtained. Low lung volumes. Heart size is within upper limits of normal. Atherosclerotic aorta. Bilateral patchy perihilar and lower lobe airspace op acities are seen. Tiny bilateral pleural effusions. No pneumothorax. IMPRESSION: 1. Bilateral patchy perihilar and lower lobe airspace opacities. This may represent edema or developi ng pneumonia. Tiny pleural effusions.
[2020-11-30 14:11] LABS: Amorphous Sediment,Urine Rare /hpf; Appearance,Urine Cloudy (Clear); Bacteria,Urine Occasional /hpf; Bilirubin,Urine 1+ (Negative); Blood,Urine Small (Negative); Color,Urine Dark Yellow; Glucose,Urine (UA) Negative (Negative); Hyaline Casts,Urine 10 /lpf (0-2); Ketones,Urine Negative (Negative); Leukocyte Esterase,Urine Trace (Negative); Mucus,Urine Rare /hpf; Nitrite,Urine Negative (Negative); Protein,Urine Trace (Negative); RBC,Urine 3 /hpf (0-5); Squamous Epithelial Cell,Urine <1 /hpf (0-4); WBC,Urine 2 /hpf (0-5)
[2020-11-30] MEDS ORDERED: ACETAMINOPHEN TAB 325 MG TAB PO PRN (14:21)
[2020-11-30] MEDS ORDERED: NALOXONE 0.4 MG/ML 1 ML VIAL IV PRN (14:21)
[2020-11-30] MEDS ORDERED: DEXTROSE 5% IN WATER 1,000 ML IV ONE (16:00)
[2020-11-30 16:30] LABS: Anisocytosis Slight; Basophils # (A) 0.1 k/uL (0-0.2); Basophils % (A) 1 %; Eosinophils # (A) 0.3 k/uL (0-0.7); Eosinophils % (A) 4 %; HCT 50.3 % (39.0-53.0); HGB 14.8 gm/dL (13.0-17.5); Hypochromasia Marked; Lymphocytes # (A) 1.2 k/uL (1.0-4.8); Lymphocytes % (A) 16 %; MCH 26.4 pg (25.0-35.0); MCHC 29.4 g/dL (31.0-37.0); Mean Platelet Volume 8.2; Monocytes # (A) 0.5 k/uL (0-1.0); Monocytes % (A) 7 %; Neutrophils # (A) 5.3 k/uL (1.3-7.7); Neutrophils % (A) 71 %; Platelet Count 111 k/uL (150-450); RBC 5.62 m/uL (4.30-5.90); RDW 17.9 % (11.5-15.5); WBC 7.6 k/uL (3.8-10.6)
[2020-11-30 16:34] LABS: MCV 89.6 fL (80.0-100.0)
[2020-11-30 16:47] LABS: African American GFR (CKD) 35 (>60 ml/min/1.73 sqM); Anion Gap 10 mmol/L; Blood Urea Nitrogen 45 mg/dL (9-20); C Reactive Protein 3.8 mg/dL (<1.0); Calcium 8.4 mg/dL (8.4-10.2); Carbon Dioxide 18 mmol/L (22-30); Chloride 128 mmol/L (98-107); Glucose 114 mg/dL (74-99); Non-African American GFR(CKD) 30 (>60 ml/min/1.73 sqM); Potassium 4.1 mmol/L (3.5-5.1); Sodium 156 mmol/L (137-145)
[2020-11-30] MEDS ORDERED: ceFAZolin 1,000 MG VIAL (IM USE) IM SCH (20:15)
[2020-11-30] MEDS ORDERED: FAMOTIDINE 20 MG/2 ML VIAL IV SCH (21:00)
[2020-11-30] MEDS: amLODIPine 10 MG TAB PO SCH (21:09)
[2020-11-30] MEDS: DONEPEZIL 10 MG TAB PO SCH (21:09)
[2020-11-30] MEDS: MELATONIN 3 MG TABLET PO SCH (21:09)
[2020-11-30] MEDS: HEPARIN SODIUM,PORCINE/PF 5,000 UNIT/0.5 ML SYRINGE SQ SCH (21:09)
--- NOTE | 2020-11-30 22:22 | P.HPIM ---
History of Present Illness This is a pleasant 84 years old male with past medical history of hypertension, hyperlipidemia, sleep apnea on CPAP/BiPAP, recently diagnosed with Covid infection. Also he has foot drop Patient was sent from his ECF at [facility] because he is more lethargic, is not eating or drinking for 5 days and failure to thrive. Patient himself is poor historian, per staff Mrs. simon hart. Patient brought to me he is in [place], [place] but he could not tell me anything else regarding a Place, or person. He did not answer my question and he does not follow commands appropriately. He is hemodynamically stable. Labs showed unremarkable CBC except for mild thrombocytopenia at 127K and lymphopenia at 0.9K. his oxygen saturating 97% on room air Labs showing hypernatremia of 155, creatinine elevated 2.1, liver enzymes are normal. Urinalysis looks concentrated sample rather than infection. A martinez virus not detected. Chest x-ray: Bilateral patchy perihilar and lower lobe airspace opacity, possible pneumonia versus edema CT of the brain: No acute process In the emergency room patient received 2 L of normal saline. ProBNP is normal at 195 making CHF Unlikely Review of Systems n/a patient could not provide information Past Medical History Past Medical History: Dementia, Hyperlipidemia, Hypertension, Sleep Apnea/CPAP/BIPAP Additional Past Medical History / Comment(s): Covid positive, foot drop, History of Any Multi-Drug Resistant Organisms: None Reported Past Surgical History: Unable to Obtain Past Psychological History: Unable to Obtain Smoking Status: Former smoker Past Alcohol Use History: Unable to Obtain Past Drug Use History: Unable to Obtain Medications and Allergies Home Medications Medication Instructions Recorded Confirmed Type Albuterol Sulfate [Ventolin HFA] 2 puff INHALATION QID@07,13,19,23 11/11/20 11/30/20 History Donepezil HCl [Aricept] 10 mg PO DAILY 11/11/20 11/30/20 History Enoxaparin [Lovenox] 40 mg SQ DAILY 11/11/20 11/30/20 History Health-Shake 1 can PO TID@0700,1300,1900 11/11/20 11/30/20 History Ipratropium-Albuterol Nebulize 3 ml INHALATION RT-Q6H PRN 11/11/20 11/30/20 History [Duoneb 0.5 mg-3 mg/3 ml Soln] Melatonin 3 mg PO HS 11/11/20 11/30/20 History QUEtiapine FUMARATE [SEROquel] 12.5 mg PO HS@199911/11/20 11/30/20 History amLODIPine [Norvasc] 10 mg PO DAILY 11/11/20 11/30/20 History lisinopriL [Zestril] 20 mg PO DAILY 11/11/20 11/30/20 History Acetaminophen Tab [Tylenol] 650 mg PO Q4H PRN 11/30/20 11/30/20 History Omeprazole [PriLOSEC] 20 mg PO DAILY 11/30/20 11/30/20 History Sodium Chloride 0.9% Irrigatio 125 ml IV TID 11/30/20 11/30/20 History [Saline 0.9% Irrigation Bottle] ceFAZolin [Kefzol] 500 mg IV Q8H 11/30/20 11/30/20 History Allergies Allergy/AdvReac Type Severity Reaction Status Date / Time No Known Allergies Allergy Verified 11/30/20 12:36 Physical Exam Vitals: Vital Signs Temp Pulse Resp BP Pulse Ox 11/30/20 14:18 74 20 112/64 97 11/30/20 12:43 20 11/30/20 11:59 97.5 F L 86 18 104/51 95 Intake and Output 11/30/20 11/30/20 11/30/20 06:59 14:59 22:59 Other: Weight 81.647 kg -GENERAL: The patient is confused, not in any acute distress. Well developed, well nourished. HEENT: Pupils are round and equally reacting to light. EOMI. No scleral icterus. No conjunctival pallor. Normocephalic, atraumatic. No pharyngeal erythema. No thyromegaly. CARDIOVASCULAR: S1 and S2 present. No murmurs, rubs, or gallops. PULMONARY: Chest is clear to auscultation, no wheezing or crackles. ABDOMEN: Soft, nontender, nondistended, normoactive bowel sounds. No palpable organomegaly. MUSCULOSKELETAL: No joint swelling or deformity. EXTREMITIES: No cyanosis, clubbing, or pedal edema. NEUROLOGICAL: Gross neurological examination did not reveal any focal deficits. SKIN: No rashes. No petechiae Results CBC & Chem 7: 11/30/20 16:10 11/30/20 16:10 Labs: Abnormal Lab Results - Last 24 Hours (Table) 11/30/20 11/30/20 11/30/20 Range/Units 11:56 11:56 11:58 RDW 18.0 H (11.5-15.5) % Plt Count 127 L (150-450) k/uL Lymphocytes # 0.9 L (1.0-4.8) k/uL Sodium 155 H (137-145) mmol/L Chloride 125 H (98-107) mmol/L BUN 49 H (9-20) mg/dL Creatinine 2.18 H (0.66-1.25) mg/dL Glucose 116 H (74-99) mg/dL POC Glucose (mg/dL) 115 H (75-99) mg/dL Magnesium 2.6 H (1.6-2.3) mg/dL Total Protein 6.2 L (6.3-8.2) g/dL Albumin 2.8 L (3.5-5.0) g/dL Urine Protein (Negative) Urine Blood (Negative) Urine Bilirubin (Negative) Ur Leukocyte Esterase (Negative) Amorphous Sediment (None) /hpf Urine Bacteria (None) /hpf Hyaline Casts (0-2) /lpf Urine Mucus (None) /hpf 11/30/20 Range/Units 12:31 RDW (11.5-15.5) % Plt Count (150-450) k/uL Lymphocytes # (1.0-4.8) k/uL Sodium (137-145) mmol/L Chloride (98-107) mmol/L BUN (9-20) mg/dL Creatinine (0.66-1.25) mg/dL Glucose (74-99) mg/dL POC Glucose (mg/dL) (75-99) mg/dL Magnesium (1.6-2.3) mg/dL Total Protein (6.3-8.2) g/dL Albumin (3.5-5.0) g/dL Urine Protein Trace H (Negative) Urine Blood Small H (Negative) Urine Bilirubin 1+ H (Negative) Ur Leukocyte Esterase Trace H (Negative) Amorphous Sediment Rare H (None) /hpf Urine Bacteria Occasional H (None) /hpf Hyaline Casts 10 H (0-2) /lpf Urine Mucus Rare H (None) /hpf Assessment and Plan Assessment: Acute kidney injury Hypernatremia Mostly acute bilateral basal infiltrate, pneumonia breath and CHF metabolic encephalopathy secondary to above Hypertension Hyperlipidemia Sleep apnea on CPAP/BiPAP Recent covid infection History of foot drop Plan: This is a pleasant 84 years old male who presents with hypernatremia, acute kidney injury, bilateral pulmonary infiltrate. Stop normal saline, we will start the patient on D5 W at 100 mL per Check pro-calcitonin. Hold lisinopril. Dietary consult, swallow evaluation Labs and medication were reviewed.. Continue same treatment. Continue with symptomatic treatment. Resume home medication. Monitor lytes and vitals. DVT and GI prophylaxis. Further recommendations depends on the clinical course of t he patient DVT prophylaxis: Subcutaneous heparin GI Prophylaxis: Ppi Prognosis is guarded
[2020-12-01] MEDS: PIPERACILLIN-TAZOBACTAM 3.375 GM in SODIUM CHLORIDE 0.9% 100 ML IVPB SCH ×3 (00:38→17:25)
[2020-12-01 04:13] LABS: Estimated Average Glucose 136.98
[2020-12-01] MEDS: IPRATROPIUM-ALBUTEROL 3 ML NEB INHALATION PRN ×3 (08:00→18:39)
[2020-12-01] MEDS: PANTOPRAZOLE 40 MG TABLET PO SCH (09:17)
[2020-12-01] MEDS: DONEPEZIL 10 MG TAB PO SCH (09:17)
[2020-12-01] MEDS: HEPARIN SODIUM,PORCINE/PF 5,000 UNIT/0.5 ML SYRINGE SQ SCH ×2 (09:17→19:44)
[2020-12-01] MEDS: amLODIPine 10 MG TAB PO SCH (09:45)
[2020-12-01] MEDS ORDERED: DEXTROSE 5% IN WATER 1,000 ML IV ONE (10:51)
[2020-12-01 11:20] LABS: Basophils # (A) 0.02 X 10*3/uL (0.00-0.10); Basophils % (A) 0.2 %; Eosinophils # (A) 0.51 X 10*3/uL (0.04-0.35); Eosinophils % (A) 6.3 %; HCT 47.8 % (39.6-50.0); HGB 14.8 g/dL (13.0-17.0); Lymphocytes # (A) 1.16 X 10*3/uL (0.90-5.00); Lymphocytes % (A) 14.2 %; MCH 26.2 pg (27.0-32.0); MCV 84.8 fL (80.0-97.0); Mean Platelet Volume 11.2 fL (9.5-12.2); Monocytes # (A) 0.69 X 10*3/uL (0.20-1.00); Monocytes % (A) 8.5 %; Neutrophils # (A) 5.72 X 10*3/uL (1.80-7.70); Neutrophils % (A) 70.1 %; Platelet Count 150 X 10*3/uL (140-440); RBC 5.64 X 10*6/uL (4.40-5.60); RDW 20.1 % (11.5-14.5); WBC 8.16 X 10*3/uL (4.50-10.00)
[2020-12-01 14:01] LABS: African American GFR (CKD) 39.5 (60.0-200.0); Anion Gap 13.2 mmol/L (4.00-12.00); BUN/Creat Ratio 21.67 Ratio (12.00-20.00); Calcium 8.2 mg/dL (8.7-10.3); Carbon Dioxide 20.8 mmol/L (21.6-31.8); Potassium 3.7 mmol/L (3.5-5.5)
[2020-12-01 15:54] VITALS: BMI 26.6
--- NOTE | 2020-12-01 18:44 | CONS ---
CONSULTATION REASON FOR CONSULT: Renal failure. HISTORY OF PRESENT ILLNESS: The patient is an 84-year-old male who was admitted to the hospital yesterday with mental status changes. The patient recently had COVID infection. He was sent from the [facility] at [facility] because he has been more lethargic and has had decreased oral intake. The patient was noted to have a serum sodium of 155. His creatinine was 2.18. Prior creatinine was 0.7 on 11/16/2020. The patient is currently voiding; may be incontinent. His blood pressure has been borderline, with systolic around 104 to 129, but not below 100. Prior to admission patient was maintained on DAKOTA inhibitors. He was maintained on IV fluids, which were eventually discontinued. Chest x-ray shows bilateral patchy perihilar and lower lobe airspace opacities. PAST MEDICAL HISTORY: Significant for recent COVID infection about 2 weeks ago, treated with steroids. Chest CTA on 11/11/2020 on his last admission showed bilateral extensive infiltrates consistent with pneumonia. He also has dementia, hyperlipidemia, hypertension, obstructive sleep apnea, foot drop. PAST SURGICAL HISTORY: None. SOCIAL HISTORY: Patient is a former smoker. No history of drug abuse or alcohol abuse. MEDICATIONS: Medications prior to admission included Aricept, Lovenox, Norvasc, Zestril, Prilosec, Kefzol. ALLERGIES: NONE. PHYSICAL EXAMINATION: Patient is comfortable, awake, not in any acute distress. He is not able to communicate much. He is confused. Blood pressure 137/64, heart rate 62 per minute. He is afebrile. EXAMINATION OF THE HEART: S1 and S2. EXAMINATION OF LUNGS: Bilateral breath sounds are heard. ABDOMEN: Soft, non-tender. Examination of lower extremities shows no significant edema. WIRE TEMPERER exam shows patient is confused. He is moving all 4 extremities. He has been pulling out his IVs and oxygen. LABS: Sodium 156, potassium 4.1, chloride 128. CO2 is 18, BUN 45, creatinine 2.01. Hemoglobin 14.8 g/dL. UA shows trace protein, small blood. PCR for coronavirus colon not detected. ASSESSMENT: 1. Acute kidney injury, mostly prerenal. I will resume IV fluids. We need to rule out urine retention. Check a post-void residual or bladder scan if patient is not voiding. 2. Hypernatremia. Resume D5W. 3. Mental status changes, possibly related to underlying hypernatremia as well as volume depletion. 4. Recent COVID pneumonia with improvement in chest x-ray findings. 5. Metabolic acidosis associated with renal failure. PLAN: Resume D5W. Repeat labs in a.m. Encourage increased oral intake. Check bladder scan. Rule out urine retention. Thank you for this consultation. Will continue to follow the patient with you during his hospitalization. MMODL / IJN: [id number] /
[2020-12-01] MEDS: QUEtiapine 25 MG TAB PO SCH ×2 (19:44→19:56)
[2020-12-01] MEDS: MELATONIN 3 MG TABLET PO SCH ×2 (19:44→19:56)
[2020-12-01] MEDS ORDERED: HALOPERIDOL LACTATE 5 MG/ML 1 ML VIAL IM PRN (20:18)
[2020-12-01] MEDS ORDERED: QUEtiapine 25 MG TAB PO SCH (21:30)
--- NOTE | 2020-12-01 21:38 | P.PN ---
Subjective This is a pleasant 84 years old male with past medical history of hypertension, hyperlipidemia, sleep apnea on CPAP/BiPAP, recently diagnosed with Covid infection. Also he has foot drop Patient was sent from his ECF at [facility] because he is more lethargic, is not eating or drinking for 5 days and failure to thrive. Patient himself is poor historian, per staff Mrs. simon hart. Patient brought to me he is in [place], [place] but he could not tell me anything else regarding a Place, or person. He did not answer my question and he does not follow commands appropriately. He is hemodynamically stable. Labs showed unremarkable CBC except for mild thrombocytopenia at 127K and lymphopenia at 0.9K. his oxygen saturating 97% on room air Labs showing hypernatremia of 155, creatinine elevated 2.1, liver enzymes are normal. Urinalysis looks concentrated sample rather than infection. A martinez virus not detected. Chest x-ray: Bilateral patchy perihilar and lower lobe airspace opacity, possible pneumonia versus edema CT of the brain: No acute process In the emergency room patient received 2 L of normal saline. ProBNP is normal at 195 making CHF Unlikely 12/01/2020 Patient remains confused and agitated at times, he is on Seroquel and Haldol as needed. He is not eating. No significant nausea vomiting however he is confused. He is hemodynamically stable and although there is bilateral pulmonary infiltrate, this likely CHF with normal proBNP, pneumonia suspected and he is on Zosyn: Pro-calcitonin is mildly elevated at 0.23, recheck chest x-ray the morning. Still hypernatremic with hoarseness sodium 138, improving creatinine 2.0 down to 1.8, platelet is back to normal today at 150. He remains on Zosyn and D5W at 70 mL/h. Nephrology team on the case Patient passed a swallow evaluation however he is not eating due to his mentation status Review of Systems: n/a patient could not provide information Active Medications Generic Name Dose Route Start Last Admin Trade Name Freq PRN Reason Stop Dose Admin Acetaminophen 650 mg 11/30/20 14:21 Acetaminophen Tab 325 Mg Tab PO Q6HR PRN Mild Pain or Fever > 100.5 Albuterol/Ipratropium 3 ml 11/30/20 20:14 12/01/20 18:39 Ipratropium-Albuterol 3 Ml Neb INHALATION 3 ml RT-Q6H PRN Administration Shortness Of Breath Donepezil HCl 10 mg 11/30/20 20:15 12/01/20 09:17 Donepezil 10 Mg Tab PO 10 mg DAILY LISA Administration Haloperidol Lactate 2 mg 12/01/20 20:18 12/01/20 20:36 Haloperidol Lactate 5 Mg/Ml 1 Ml Vial IM 2 mg ONCE PRN Administration Agitation or Acute Psychosis Heparin Sodium (Porcine) 5,000 unit 11/30/20 21:00 12/01/20 19:44 Heparin Sodium,Porcine/Pf 5,000 Unit/0.5 Ml Syringe SQ 5,000 unit Q12HR LISA Administration Piperacillin Sod/Tazobactam 100 mls @ 25 mls/hr 12/01/20 00:00 12/01/20 17:25 Sod 3.375 gm/ Sodium Chloride IVPB 25 mls/hr Q8HR LISA Administration Dextrose/Water 1,000 mls @ 70 mls/hr 12/01/20 10:51 12/01/20 16:39 Dextrose 5%-Water Iv Soln IV 12/02/20 01:08 70 mls/hr .[id number] ONE Administration Melatonin 3 mg 11/30/20 21:00 12/01/20 19:56 Melatonin 3 Mg Tablet PO Not Given HS [facility] Naloxone HCl 0.2 mg 11/30/20 14:21 Naloxone 0.4 Mg/Ml 1 Ml Vial IV Q2M PRN Opioid Reversal Pantoprazole Sodium 40 mg 12/01/20 09:00 12/01/20 09:17 Pantoprazole 40 Mg Tablet PO 40 mg DAILY LISA Administration Quetiapine Fumarate 25 mg 12/01/20 21:30 Quetiapine 25 Mg Tab PO HS@2000 [facility] Objective - Vital Signs Vital signs: Vital Signs Temp 98.1 F 12/01/20 19:20 Pulse 90 12/01/20 19:20 Resp 18 12/01/20 19:20 BP 121/74 12/01/20 19:20 Pulse Ox 94 L 12/01/20 19:20 Intake & Output 12/01/20 12/01/20 12/02/20 06:59 18:59 06:59 Intake Total 700 1080 Balance 700 1080 Weight 81.647 kg 81.647 kg Intake: IV 840 Dextrose 5% in Water 1, 840 000 ml @ 70 mls/hr IV . [id number] ONE Rx#:[id number] Intake, IV Titration 700 Amount Dextrose 5% in Water 1, 600 000 ml @ 100 mls/hr IV . Q10H ONE Rx#:[id number] Piperacillin-Tazobactam 3 100 .375 gm In Sodium Chloride 0.9% 100 ml @ 25 mls/hr IVPB Q8HR LISA Rx# :[id number] Oral 240 Other: # Voids 3 2 - Exam -GENERAL: The patient is confused, not in any acute distress. Well developed, well nourished. HEENT: Pupils are round and equally reacting to light. EOMI. No scleral icterus. No conjunctival pallor. Normocephalic, atraumatic. No pharyngeal erythema. No thyromegaly. CARDIOVASCULAR: S1 and S2 present. No murmurs, rubs, or gallops. PULMONARY: Chest is clear to auscultation, no wheezing or crackles. ABDOMEN: Soft, nontender, nondistended, normoactive bowel sounds. No palpable organomegaly. MUSCULOSKELETAL: No joint swelling or deformity. EXTREMITIES: No cyanosis, clubbing, or pedal edema. NEUROLOGICAL: Gross neurological examination did not reveal any focal deficits. SKIN: No rashes. No petechiae - Labs CBC & Chem 7: 12/01/20 06:51 12/01/20 06:51 Labs: Abnormal Lab Results - Last 24 Hours (Table) 11/30/20 11/30/20 12/01/20 Range/Units 12:25 12:25 06:51 RBC 5.64 H (4.40-5.60) X 10*6/uL MCH 26.2 L (27.0-32.0) pg MCHC 31.0 L (32.0-37.0) g/dL RDW 20.1 H (11.5-14.5) % Immature Gran # 0.06 H (0.00-0.04) X 10*3/uL Eosinophils # 0.51 H (0.04-0.35) X 10*3/uL Sodium (135-145) mmol/L Chloride (96-109) mmol/L Carbon Dioxide (21.6-31.8) mmol/L Anion Gap (4.00-12.00) mmol/L BUN (9.0-27.0) mg/dL Creatinine (0.6-1.5) mg/dL Est GFR (CKD-EPI)AfAm (60.0-200.0) Est GFR (CKD-EPI)NonAf (60.0-200.0) BUN/Creatinine Ratio (12.00-20.00) Ratio Glucose (70-110) mg/dL Hemoglobin A1c 6.4 H (4.0-6.0) % Calcium (8.7-10.3) mg/dL Procalcitonin 0.13 H (0.02-0.09) ng/mL 12/01/20 Range/Units 06:51 RBC (4.40-5.60) X 10*6/uL MCH (27.0-32.0) pg MCHC (32.0-37.0) g/dL RDW (11.5-14.5) % Immature Gran # (0.00-0.04) X 10*3/uL Eosinophils # (0.04-0.35) X 10*3/uL Sodium 158 H (135-145) mmol/L Chloride 124 H (96-109) mmol/L Carbon Dioxide 20.8 L (21.6-31.8) mmol/L Anion Gap 13.20 H (4.00-12.00) mmol/L BUN 39.0 H (9.0-27.0) mg/dL Creatinine 1.8 H (0.6-1.5) mg/dL Est GFR (CKD-EPI)AfAm 39.5 L (60.0-200.0) Est GFR (CKD-EPI)NonAf 34.0 L (60.0-200.0) BUN/Creatinine Ratio 21.67 H (12.00-20.00) Ratio Glucose 124 H (70-110) mg/dL Hemoglobin A1c (4.0-6.0) % Calcium 8.2 L (8.7-10.3) mg/dL Procalcitonin (0.02-0.09) ng/mL Assessment and Plan Assessment: Acute kidney injury Hypernatremia Mostly acute bilateral basal infiltrate, pneumonia . CHF unlikely metabolic encephalopathy secondary to above. With agitation Hypertension Hyperlipidemia Sleep apnea on CPAP/BiPAP Recent covid infection History of foot drop Plan: This is a pleasant 84 years old male who presents with hypernatremia, acute kidney injury, bilateral pulmonary infiltrate. Continue on D5 W at 70 mL per Hold lisinopril. Dietary consult Labs and medication were reviewed.. Continue same treatment. Continue with symptomatic treatment. Resume home medication. Monitor lytes and vitals. DVT and GI prophylaxis. Further recommendations depends on the clinical course of the patient DVT prophylaxis: Subcutaneous heparin GI Prophylaxis: Ppi Prognosis is guarded
[2020-12-02] MEDS: PIPERACILLIN-TAZOBACTAM 3.375 GM in SODIUM CHLORIDE 0.9% 100 ML IVPB SCH ×3 (00:17→14:54)
[2020-12-02 07:36] VITALS: BP 131/66; RESP 16; TEMP 95.5
[2020-12-02] MEDS: IPRATROPIUM-ALBUTEROL 3 ML NEB INHALATION PRN ×2 (08:36→12:30)
[2020-12-02] MEDS ORDERED: DEXTROSE 5% IN WATER 1,000 ML IV SCH (09:00)
[2020-12-02] MEDS ORDERED: HALOPERIDOL LACTATE 5 MG/ML 1 ML VIAL IM PRN (09:07)
[2020-12-02] MEDS: DONEPEZIL 10 MG TAB PO SCH (09:30)
[2020-12-02] MEDS: HEPARIN SODIUM,PORCINE/PF 5,000 UNIT/0.5 ML SYRINGE SQ SCH (09:30)
[2020-12-02] MEDS: PANTOPRAZOLE 40 MG TABLET PO SCH (09:30)
--- NOTE | 2020-12-02 09:44 | XR ---
EXAMINATION TYPE: XR chest 1V DATE OF EXAM: 12/02/2020 COMPARISON: 11/30/2020 HISTORY: Follow-up, altered mental status TECHNIQUE: Single frontal view of the chest is obtained. FINDINGS: AP upright portable view of the chest was obtained. Low lung volumes. Heart size is within upper limits of normal. Atherosclerotic aorta. Bilateral patchy perihilar and lower lobe airspace op acities are decreased. Tiny bilateral pleural effusions. No pneumothorax. IMPRESSION: 1. Bilateral patchy perihilar and lower lobe airspace opacities are decreased. This may represent juliette ma or pneumonia. Tiny pleural effusions.
[2020-12-02 11:35] LABS: African American GFR (CKD) 42.3 (60.0-200.0); BUN/Creat Ratio 18.24 Ratio (12.00-20.00); Non-African American GFR(CKD) 36.5 (60.0-200.0); Potassium 3.2 mmol/L (3.5-5.5)
--- NOTE | 2020-12-02 11:39 | PN ---
PROGRESS NOTE Patient is seen for followup for acute kidney injury and hypernatremia. He has been maintained on D5W; however, it appears that it was discontinued and his sodium has increased to 158 today. Patient was seen this morning. He is comfortable not in any acute distress. He remains confused with very flat affect. PHYSICAL EXAMINATION: Blood pressure is 131/66, heart rate 70 per minute. He is afebrile. EXAMINATION OF THE HEART: S1, S2. EXAMINATION OF THE LUNGS: Bilateral breath sounds are heard. Abdomen is soft, nontender. Examination of lower extremities shows no evidence of edema. LABS: Labs show sodium 158, potassium 3.7, chloride 124, BUN 39, creatinine 1.8 mg/dL. ASSESSMENT: 1. Acute kidney injury, prerenal, maintained on IV fluids, which I will continue. 2. Hypernatremia associated with free water deficit, maintained on D5W, this will be restarted. 3. Recent COVID pneumonia with improvement in chest x-ray findings. 4. Metabolic acidosis associated with renal failure, currently improved. PLAN: Resume D5W. Repeat labs in a.m. Avoid nephrotoxic agents. MMODL / IJN: [id number] /
[2020-12-02 11:47] LABS: Basophils # (A) 0.01 X 10*3/uL (0.00-0.10); Basophils % (A) 0.2 %; Eosinophils # (A) 0.28 X 10*3/uL (0.04-0.35); Eosinophils % (A) 4.7 %; HCT 42.7 % (39.6-50.0); HGB 13.3 g/dL (13.0-17.0); Lymphocytes # (A) 0.92 X 10*3/uL (0.90-5.00); Lymphocytes % (A) 15.5 %; MCH 26.2 pg (27.0-32.0); MCHC 31.1 g/dL (32.0-37.0); MCV 84.2 fL (80.0-97.0); Mean Platelet Volume 10.9 fL (9.5-12.2); Monocytes # (A) 0.48 X 10*3/uL (0.20-1.00); Monocytes % (A) 8.1 %; Neutrophils # (A) 4.22 X 10*3/uL (1.80-7.70); Neutrophils % (A) 70.8 %; Platelet Count 120 X 10*3/uL (140-440); RBC 5.07 X 10*6/uL (4.40-5.60); RDW 19.9 % (11.5-14.5); WBC 5.95 X 10*3/uL (4.50-10.00)
[2020-12-02] MEDS ORDERED: POTASSIUM CHLORIDE 20 MEQ in WATER FOR INJECTION 1 100ML.BAG IVPB STA (12:20)
[2020-12-02 12:48] VITALS: PULSE 68
--- NOTE | 2020-12-02 14:04 | P.DS ---
Providers Date of admission: 12/01/20 12:02 Attending physician: Eldon Hare MD Consults: 11/30/20 14:16 Consult Physician Routine Consulting Provider: Reba Solitario Consult Reason/Comments: jordin Do you want consulting provider notified?: Yes Primary care physician: Alli [facility] Hospital Course: Diagnoses: End of life care, patient accepted by hospice service, his going back to his ECF with hospice care advanced dementia, with failure to thrive and inability to eat and drink for more than a week Acute kidney injury Hypernatremia Mostly acute bilateral basal infiltrate, pneumonia . CHF unlikely metabolic encephalopathy secondary to above. With agitation Hypertension Hyperlipidemia Sleep apnea on CPAP/BiPAP Recent covid infection History of foot drop Hospital course: This is a pleasant 84 years old male with past medical history of hypertension, hyperlipidemia, sleep apnea on CPAP/BiPAP, recently diagnosed with Covid infection. Also he has foot drop Patient was sent from his ECF at [facility] because he is more lethargic, is not eating or drinking for more than 7 days and failure to thrive. Patient himself is poor historian, Patient brought to me he is in [place], [place] but he could not tell me anything else regarding a Place, or person. He did not answer my question and he does not follow commands appropriately. He was admitted for severe acute kidney injury and hypernatremia. Chest x-ray: Bilateral patchy perihilar and lower lobe airspace opacity, possible pneumonia versus edema. However we talked infection plane less rolled for his illness as he did not benefit from the antibiotic and his pro-calcitonin was low. His main problem was inability to eat and drink which is multifactorial including deconditioning, advanced dementia, and other illnesses Patient treated with IV fluids and antibiotic with no improvement. Her sodium remains significantly elevated at 156 today, creatinine is still elevated montes only slight improvement down to 1.7 . Patient clinically looks the same and not improving. I discussed the case with the patient misses ceron Crohn [phone], and also with the daughter Mrs. Chua at [phone] I discussed the case with them upon the request and explained to patient condition, they were not sure in the beginning and they wanted to talk to hospice first before they decide whether to pursue with hospice care versus continue medical management. After hospice team doctor the family they decided to go for hospice, I called the and daughter and both confirmed to me that they wanted him to be on hospice and they showed understanding that the patient is going to let him peacefully. And that we are going to stop the antibiotic, IV fluid and all unnecessary medication. This decision looks appropriate given his multiple and advanced illnesses, no improvement despite optimal medical management for more than 48 hours with marketing regional consultant on the case including nephrology Patient got agitated at times of Seroquel dose was increased. Also morphine and scopolamine patches provided. Tylenol as needed. Stop unnecessary medication confirmed to me he is DO NOT RESUSCITATE Patient is going to be discharged to his ECF with hospice care upon family request Physical exam -Gen: patient is confused but calm. Does not follow command. Does not answer questions CVS: S1-S2, RRR, no murmur -Lungs: B/L CTA, no wheezing. Bilateral crepitation Abdomen: soft, no distention, no tenderness, positive bowel sounds Extremity: no leg edema or induration Time spent more than 35 minutes Patient Condition at Discharge: Fair Plan - Discharge Summary Discharge Rx Participant: No New Discharge Prescriptions: Continue Health-Shake 1 can PO TID@0700,1300,1900 amLODIPine [Norvasc] 10 mg PO DAILY Sodium Chloride 0.9% Irrigatio [Saline 0.9% Irrigation Bottle] 125 ml IV TID Ipratropium-Albuterol Nebulize [Duoneb 0.5 mg-3 mg/3 ml Soln] 3 ml INHALATION RT-Q6H PRN PRN Reason: Shortness Of Breath QUEtiapine FUMARATE [SEROquel] 12.5 mg PO HS@2000 Donepezil HCl [Aricept] 10 mg PO DAILY Acetaminophen Tab [Tylenol] 650 mg PO Q4H PRN PRN Reason: Pain Discontinued lisinopriL [Zestril] 20 mg PO DAILY Melatonin 3 mg PO HS Albuterol Sulfate [Ventolin HFA] 2 puff INHALATION QID@07,,, Enoxaparin [Lovenox] 40 mg SQ DAILY ceFAZolin [Kefzol] 500 mg IV Q8H Omeprazole [PriLOSEC] 20 mg PO DAILY Discharge Medication List Donepezil HCl [Aricept] 10 mg PO DAILY 11/11/20 [History] Health-Shake 1 can PO TID@0700,1300,1900 11/11/20 [History] Ipratropium-Albuterol Nebulize [Duoneb 0.5 mg-3 mg/3 ml Soln] 3 ml INHALATION RT-Q6H PRN 11/11/20 [History] QUEtiapine FUMARATE [SEROquel] 12.5 mg PO HS@199911/11/20 [History] amLODIPine [Norvasc] 10 mg PO DAILY 11/11/20 [History] Acetaminophen Tab [Tylenol] 650 mg PO Q4H PRN 11/30/20 [History] Sodium Chloride 0.9% Irrigatio [Saline 0.9% Irrigation Bottle] 125 ml IV TID 11/30/20 [History] Follow up Appointment(s)/Referral(s): Alil Smith MD [Primary Care Provider] - 1-2 days [facility], [NON-STAFF] - As Needed
== END 2020-12-02 15:39 | disposition hospice, home (50) | DRG 682 ==
LOC: EC 11:52 → 4SSUR 14:22 → OBSVTOIN 12-01 12:02
PROVIDERS: ADMIT Internal Medicine; ATTEND Internal Medicine
DX: N17.9 Acute kidney failure, unspecified (principal); J18.9 Pneumonia, unspecified organism; G93.41 Metabolic encephalopathy; E87.0 Hyperosmolality and hypernatremia; E87.2 Acidosis; M21.379 Foot drop, unspecified foot; R62.7 Adult failure to thrive; I50.9 Heart failure, unspecified; Z51.5 Encounter for palliative care; Z66 Do not resuscitate; Z86.16 Personal history of COVID-19; Z20.822 Contact with and (suspected) exposure to COVID-19; E78.5 Hyperlipidemia, unspecified; E86.0 Dehydration; G47.33 Obstructive sleep apnea (adult) (pediatric); F03.90 Unspecified dementia, unspecified severity, without behavioral disturbance, psychotic disturbance, mood disturbance, and anxiety; I11.0 Hypertensive heart disease with heart failure; R45.1 Restlessness and agitation; Z79.899 Other long term (current) drug therapy; Z87.01 Personal history of pneumonia (recurrent); Z87.891 Personal history of nicotine dependence
CPT/HCPCS: 36415; 70450; 71045; 80048; 80053; 81001; 82140; 83036; 83605; 83735; 83880; 84145; 84484; 85025; 85027; 85610; 85730; 86140; 87635; 93005; 94640; 94760; 96361; 96374; 99285